=== PATIENT | male | born 1935 | race Caucasian/White ===

== ENCOUNTER 2018-09-04 12:08 | Inpatient (IN) ==
[2018-09-04] MEDS ORDERED: Ipratropium/Albuterol Neb 3 ML ONE (12:15)
[2018-09-04] MEDS ORDERED: methylPREDNISolone 125 MG/2 ML VIAL IVP ONE (12:20)
[2018-09-04] MEDS ORDERED: Ipratropium/Albuterol Neb 3 ML IH ONE (12:21)
--- NOTE | 2018-09-04 12:39 | Emergency Department Note ---
Disposition Clinical Impression: Acute exacerbation of chronic obstructive airways disease, Hyponatremia Community acquired pneumonia Qualifiers: Laterality: unspecified laterality Qualified Code(s): J18.9 - Pneumonia, unspecified organism Disposition: Admitted As Inpatient Condition: Fair Referrals: Vlad Pastrana MD [Primary Care Provider] - Forms: ED Satisfaction Letter Time of Disposition: 14:26 SOB HPI - General Stated Complaint: CRISTINA Time Seen by Provider: 09/04/18 12:10 Source: patient, family, EMS Limitations: no limitations Nursing Notes Reviewed: Yes Vital Signs Reviewed: Yes - History of Present Illness Patient is an 83-year-old male presenting with difficulty breathing. Patient has history of COPD. Patient states that 4-5 days ago he began to have increasing shortness of breath and difficulty breathing with change in sputum. He states that he is not on oxygen at home. Notes that over the past few days he has had increased shortness of breath with any type of exertion. No chest pain. He states that he was seen by his primary care provider 3 days ago and was placed on steroids, as well as nebulizers. He has been doing this without resolved. He states that today he began to have increased shortness of breath and felt as though he needs to be seen. Patient denies any lower extrude a swelling, hemoptysis. He also notes he has been having very dark stools. History of GI ulcer and bleed up rectally 5-7 years ago. Patient denies any nausea, vomiting or abdominal pain. - Related Data Home Medications Medication Instructions Recorded Confirmed Aspirin Enteric Coated [Aspirin EC] 81 mg PO DAILY 03/15/16 03/15/16 Metoprolol XL (24 HR) Succ [Toprol 25 mg PO DAILY 03/15/16 03/15/16 XL] Potassium Chloride [K-Tab ER] 10 meq PO BID 03/15/16 03/15/16 Simvastatin [Zocor] 20 mg PO HS 03/15/16 03/15/16 Tamsulosin [Flomax] 0.4 mg PO DAILY 03/15/16 03/15/16 hydroCHLOROthiazide 25 mg PO DAILY 03/15/16 03/15/16 [Hydrochlorothiazide] Allergies Allergy/AdvReac Type Severity Reaction Status Date / Time Penicillins Allergy Hives Verified 08/08/15 11:55 All systems ED: reviewed and negative except as stated. Review of Systems: As Per HPI Constitutional: Denies: fever, chills, weakness, weight change Eyes: Denies: eye pain, eye discharge, vision change ENT ED: Denies: ear pain, throat pain, dental pain, hearing loss, epistaxis, congestion, dysphagia Cardiovascular: Reports: dyspnea on exertion. Denies: chest pain, palpitations, syncope Respiratory: Reports: cough, dyspnea, wheezes, sputum production. Denies: hem optysis Gastrointestinal: Reports: melena. Denies: abdominal pain, nausea, vomiting, diarrhea, constipation, hematemesis, hematochezia Genitourinary: Denies: urgency, dysuria, frequency, hematuria Musculoskeletal: Denies: back pain, neck pain, arthralgia, myalgia Integumentary: Denies: rash, abrasion, lesions Neurological: Denies: headache, weakness, numbness, paresthesias, confusion, abnormal gait, vertigo Psychiatric: Denies: anxiety, depression, suicidal thoughts, homicidal thoughts, auditory hallucinations, visual hallucinations Endocrine: Denies: fatigue Past Medical History - Past Medical History Attestation: Yes The following information was validated with the patient. Source: patient Medical history: Reports: arthritis, coronary artery disease, hyperlipidemia, hypertension, myocardial infarction, other Surgical history: Reports: other Psychiatric history: Reports: no psych history - Social History Smoking Status: Former smoker Smokeless Tobacco Status: No Alcohol use: Reports: heavy Drug use: Reports: none Physical Exam - General Limitations: no limitations General appearance: alert - Head Head exam: atraumatic, normocephalic, normal inspection - Eye Eye exam: Present: normal appearance, PERRL, EOMI - ENT ENT exam: normal exam, normal oropharynx, mucous membranes moist - Neck Neck exam: Present: normal inspection, full ROM, trachea midline - Chest Chest inspection: Present: normal inspection, symmetric chest wall rise - Respiratory Respiratory exam: Present: respiratory distress (On 15 L nonrebreather, accessory muscle use), wheezes, prolonged expiratory phase - Cardiovascular Cardiovascular exam: Present: regular rate, normal rhythm, normal heart sounds - Abdominal Exam Abdominal exam: Present: soft, Non-Tender. Absent: tenderness, distention, guarding, rebound, rigidity - Extremities Exam Extremities exam: Present: normal inspection, full ROM. Absent: tenderness, pedal edema - Neurological Exam Neurological exam: Present: alert, oriented X3 - Psychiatric Psychiatric exam: Present: normal affect, normal mood - Skin Skin exam: Present: warm, dry, intact, normal color Course Vital Signs Temperature 97.5 F L 09/04/18 12:20 Pulse Rate 91 09/04/18 12:20 Respiratory Rate 18 09/04/18 12:20 Blood Pressure 114/79 09/04/18 12:20 O2 Sat by Pulse Oximetry 94 09/04/18 12:20 Temperature 97.5 F L 09/04/18 12:20 Pulse Rate 112 09/04/18 13:13 Respiratory Rate 24 09/04/18 13:13 Blood Pressure 100/63 09/04/18 13:13 O2 Sat by Pulse Oximetry 100 09/04/18 13:43 Oxygen Delivery Oxygen Delivery Bipap Shortness of Breath/Dyspnea - MDM Narrative Medical decision making narrative: Patient is an 83-year-old male presenting with difficulty breathing and shortness of breath. Patient is not on oxygen at home. Patient has history of CHF, COPD, hypertension and hyperlipidemia. Patient has had progressive shortness of breath over the past 4-5 days. He has been on a course of prednisone as well as W laser treatments at home. He completed a 5 day prednisone dose. Patient states he has no fever or chills. On arrival, patient has increased work of breathing, has accessory muscle use, pulse ox is in the high 80s, with continued work of breathing. He was increased to 15 L nonrebrea ther, continues to have difficulty breathing. He was transferred to [facility] [place] due to respiratory distress. He was given DuoNeb 3. As well as Solu-Medrol. On reevaluation, patient is sitting comfortably, with a pulse ox of 96%. Chest x- ray did reveal bilateral lower pneumonia in the bases, patient was started on azithromycin and Rocephin. Patient also found to be hyponatremic on BMP, was started on normal saline. He also was found to have a leukocytosis of 20, most likely infectious also due to recent steroid use. Did discuss these findings with the patient. BNP is also slightly elevated, no fluid overload is noted on examination, no pitting edema, however he feels so this is most likely due to COPD exacerbation as well as pneumonia. EKG did show most likely MAT, as rhythm is irregular with P waves noted. Did discuss these findings with the patient, he is agreeable to admission for further evaluation and treatment. I spoke with the hospitalist, he has been accepted at this point in time. - Differential Diagnosis Likely: acute exacerbation of chronic obstructive airways disease, congestive heart failure, pneumonia - Medical Records Medical records reviewed: Yes I reviewed the patient's medical records. - Lab Data Lab results reviewed: Yes I reviewed the patient's lab results. Result diagrams: 09/04/18 12:32 09/04/18 12:32 Lab Results 09/04/18 09/04/18 09/04/18 Range/Units 12:32 12:32 12:32 WBC 20.9 H (4.3-11.1) K/mcL RBC 4.38 (4.19-5.50) M/mcL Hgb 14.9 (12.9-16.9) g/dL Hct 42.1 (37.5-50.1) % MCV 96.1 (83.0-100.0) fL MCH 34.0 H (28.0-33.3) pg MCHC 35.4 (31.6-35.5) g/dL RDW 12.1 (11.5-14.5) % Plt Count 550 H (140-400) K/mcL MPV 9.6 (9.4-12.4) fL Immature Gran % 1.2 (0-4) % Seg Neutrophils % 84.2 % Lymphocytes % 5.9 % Monocytes % 8.5 % Eosinophils % 0.0 % Basophils % 0.2 % Neutrophils # 17.6 H (1.6-8.9) K/mcL Lymphocytes # 1.2 (0.6-4.6) K/mcL Monocytes # 1.8 H (0.0-1.3) K/mcL Eosinophils # 0.0 (0.0-0.6) K/mcL Basophils # 0.1 (0.0-0.2) K/mcL Sodium 129 L (136-145) mEq/L Potassium 3.4 L (3.5-5.1) mEq/L Chloride 89 L (98-107) mEq/L Carbon Dioxide 34 H (23-29) mEq/L BUN 22 (8-23) mg/dL Creatinine 0.83 (0.70-1.30) mg/dL Est GFR ( Amer) > 60 (> 60) Est GFR (Non-Af Amer) > 60 (> 60) BUN/Creatinine Ratio 27 H (6-26) Glucose 119 H (70-105) mg/dL Calculated Osmolality 272 L (280-300) Lactic Acid 1.6 (0.5-2.2) mmol/L Calcium 9.0 (8.6-10.3) mg/dL Troponin I < 0.03 (< 0.04) ng/mL B-Natriuretic Peptide (Less than 100) pg/mL 09/04/18 Range/Units 12:32 WBC (4.3-11.1) K/mcL RBC (4.19-5.50) M/mcL Hgb (12.9-16.9) g/dL Hct (37.5-50.1) % MCV (83.0-100.0) fL MCH (28.0-33.3) pg MCHC (31.6-35.5) g/dL RDW (11.5-14.5) % Plt Count (140-400) K/mcL MPV (9.4-12.4) fL Immature Gran % (0-4) % Seg Neutrophils % % Lymphocytes % % Monocytes % % Eosinophils % % Basophils % % Neutrophils # (1.6-8.9) K/mcL Lymphocytes # (0.6-4.6) K/mcL Monocytes # (0.0-1.3) K/mcL Eosinophils # (0.0-0.6) K/mcL Basophils # (0.0-0.2) K/mcL Sodium (136-145) mEq/L Potassium (3.5-5.1) mEq/L Chloride (98-107) mEq/L Carbon Dioxide (23-29) mEq/L BUN (8-23) mg/dL Creatinine (0.70-1.30) mg/dL Est GFR ( Amer) (> 60) Est GFR (Non-Af Amer) (> 60) BUN/Creatinine Ratio (6-26) Glucose (70-105) mg/dL Calculated Osmolality (280-300) Lactic Acid (0.5-2.2) mmol/L Calcium (8.6-10.3) mg/dL Troponin I (< 0.04) ng/mL B-Natriuretic Peptide 194 H (Less than 100) pg/mL - Radiology Data Radiology results reviewed: Yes I reviewed the patient's radiology results. Chest X-Ray 09/04/18 12:20 IMPRESSION: New patchy airspace opacities in lung bases suspicious for pneumonia. D/ / Cathy Wen MD / Cathy Wen MD Interpreting Provider: Cathy Wen MD - EKG Data EKG attestation: Yes I reviewed and interpreted this EKG. EKG results narrative: EKG performed at 1227 with ventricular rate of 119, multiple P-wave morphologies are noted, irregular rhythm, normal axis, no ST elevation or depression is noted. Most likely this represents MAT, given COPD exacerbation. S.B.A.R. - S.B.A.R. Situation: Demographics, MOA Background: Presenting Complaint, Relevant PMH, Meds, & Allergies Assessment: Vital Signs, Course and respsone to treatment, Exam Concerns, Patient/Family Expectation, Pertinant Lab Results, Outstanding Labs Recommendation: Barrier(s) to disposition, Recommendation based on pending studies, treatments, or consults S.B.A.R. Report Given to: Hospitalist [email or web address] Repor Time: 14:34 (accepted) Attestation Statement - Attestation Attestation: I, Marcel Hanna DO, examined this patient [id number] and my medical decision-making was reviewed with Dr. Sinan Alberts , Resident Physician. I agree with the documented findings, disposition and treatment plan as described except to the extent set forth below. Please see my progress notes for details.
[2018-09-04 12:44] LABS: Basophils # 0.1 K/mcL (0.0-0.2); Basophils % 0.2 %; Hematocrit 42.1 % (37.5-50.1); Hemoglobin 14.9 g/dL (12.9-16.9); Immature Granulocytes % 1.2 % (0-4); Lymphocytes # 1.2 K/mcL (0.6-4.6); Lymphocytes % 5.9 %; Mean Corpuscular HGB Conc 35.4 g/dL (31.6-35.5); Mean Corpuscular Volume 96.1 fL (83.0-100.0); Mean Platelet Volume 9.6 fL (9.4-12.4); Monocytes # 1.8 K/mcL (0.0-1.3); Monocytes % 8.5 %; Neutrophils # 17.6 K/mcL (1.6-8.9); Platelet Count 550 K/mcL (140-400); Red Blood Count 4.38 M/mcL (4.19-5.50); Red Cell Distribution Width 12.1 % (11.5-14.5); Segmented Neutrophils % 84.2 %
[2018-09-04 13:09] LABS: BUN/Creatinine Ratio 27 (6-26); Blood Urea Nitrogen 22 mg/dL (8-23); Carbon Dioxide 34 mEq/L (23-29); Chloride 89 mEq/L (98-107); Glucose 119 mg/dL (70-105); Osmolality,Calculated 272 (280-300); Potassium 3.4 mEq/L (3.5-5.1); Sodium 129 mEq/L (136-145); Troponin I < 0.03 ng/mL (< 0.04); eGFR For Non-African Americans > 60 (> 60)
[2018-09-04] MEDS ORDERED: cefTRIAXone 1,000 MG in Water for inj. (sterile) 20 ML 10 ML IVP ONE (13:24)
[2018-09-04] MEDS ORDERED: Azithromycin 500 MG in D5% in Water 250 ML IVPB ONE (13:24)
[2018-09-04] MEDS ORDERED: 0.9 % Sodium Chloride 500 ML IVC ONE (13:48)
--- NOTE | 2018-09-04 14:20 | Emergency Department Note ---
Disposition Clinical Impression: Acute exacerbation of chronic obstructive airways disease Community acquired pneumonia Qualifiers: Laterality: unspecified laterality Qualified Code(s): J18.9 - Pneumonia, unspecified organism Disposition: Admitted As Inpatient Condition: Fair Referrals: Vlad Pastrana MD [Primary Care Provider] - Forms: ED Satisfaction Letter Time of Disposition: 14:30 General Adult HPI - General Chief complaint: ED Shortness of Breath/Dyspnea Stated complaint: CRISTINA Time Seen by Provider: 09/04/18 12:10 Source: patient, family, EMS Limitations: no limitations - History of Present Illness Pain Scale: 0 - Related Data Home Medications Medication Instructions Recorded Confirmed Aspirin Enteric Coated [Aspirin EC] 81 mg PO DAILY 03/15/16 03/15/16 Metoprolol XL (24 HR) Succ [Toprol 25 mg PO DAILY 03/15/16 03/15/16 XL] Potassium Chloride [K-Tab ER] 10 meq PO BID 03/15/16 03/15/16 Simvastatin [Zocor] 20 mg PO HS 03/15/16 03/15/16 Tamsulosin [Flomax] 0.4 mg PO DAILY 03/15/16 03/15/16 hydroCHLOROthiazide 25 mg PO DAILY 03/15/16 03/15/16 [Hydrochlorothiazide] Allergies Allergy/AdvReac Type Severity Reaction Status Date / Time Penicillins Allergy Hives Verified 08/08/15 11:55 Constitutional: Denies: fever, chills, weakness, weight change Eyes: Denies: eye pain, eye discharge, vision change ENT ED: Denies: ear pain, throat pain, dental pain, hearing loss, epistaxis, congestion, dysphagia Cardiovascular: Reports: dyspnea on exertion. Denies: chest pain, palpitations, syncope Respiratory: Reports: cough, dyspnea, wheezes, sputum production. Denies: hemoptysis Gastrointestinal: Reports: melena. Denies: abdominal pain, nausea, vomiting, diarrhea, constipation, hematemesis, hematochezia Genitourinary: Denies: urgency, dysuria, frequency, hematuria Musculoskeletal: Denies: back pain, neck pain, arthralgia, myalgia Integumentary: Denies: rash, abrasion, lesions Neurological: Denies: headache, weakness, numbness, paresthesias, confusion, abnormal gait, vertigo Psychiatric: Denies: anxiety, depression, suicidal thoughts, homicidal thoughts, auditory hallucinations, visual hallucinations Endocrine: Denies: fatigue Past Medical History - Past Medical History Medical history: Reports: arthritis, coronary artery disease, hyperlipidemia, hy pertension, myocardial infarction, other Surgical history: Reports: other Psychiatric history: Reports: no psych history - Social History Smoking Status: Former smoker Smokeless Tobacco Status: No Alcohol use: Reports: heavy Drug use: Reports: none Physical Exam - General Limitations: no limitations General appearance: alert Course Vital Signs Temperature 97.5 F L 09/04/18 12:20 Pulse Rate 91 09/04/18 12:20 Respiratory Rate 18 09/04/18 12:20 Blood Pressure 114/79 09/04/18 12:20 O2 Sat by Pulse Oximetry 94 09/04/18 12:20 Temperature 97.5 F L 09/04/18 12:20 Pulse Rate 112 09/04/18 13:13 Respiratory Rate 24 09/04/18 13:13 Blood Pressure 100/63 09/04/18 13:13 O2 Sat by Pulse Oximetry 100 09/04/18 13:43 Oxygen Delivery Oxygen Delivery Bipap Medical Decision Making - Lab Data Result diagrams: 09/04/18 12:32 09/04/18 12:32 Lab Results 09/04/18 09/04/18 09/04/18 Range/Units 12:32 12:32 12:32 WBC 20.9 H (4.3-11.1) K/mcL RBC 4.38 (4.19-5.50) M/mcL Hgb 14.9 (12.9-16.9) g/dL Hct 42.1 (37.5-50.1) % MCV 96.1 (83.0-100.0) fL MCH 34.0 H (28.0-33.3) pg MCHC 35.4 (31.6-35.5) g/dL RDW 12.1 (11.5-14.5) % Plt Count 550 H (140-400) K/mcL MPV 9.6 (9.4-12.4) fL Immature Gran % 1.2 (0-4) % Seg Neutrophils % 84.2 % Lymphocytes % 5.9 % Monocytes % 8.5 % Eosinophils % 0.0 % Basophils % 0.2 % Neutrophils # 17.6 H (1.6-8.9) K/mcL Lymphocytes # 1.2 (0.6-4.6) K/mcL Monocytes # 1.8 H (0.0-1.3) K/mcL Eosinophils # 0.0 (0.0-0.6) K/mcL Basophils # 0.1 (0.0-0.2) K/mcL Sodium 129 L (136-145) mEq/L Potassium 3.4 L (3.5-5.1) mEq/L Chloride 89 L (98-107) mEq/L Carbon Dioxide 34 H (23-29) mEq/L BUN 22 (8-23) mg/dL Creatinine 0.83 (0.70-1.30) mg/dL Est GFR ( Amer) > 60 (> 60) Est GFR (Non-Af Amer) > 60 (> 60) BUN/Creatinine Ratio 27 H (6-26) Glucose 119 H (70-105) mg/dL Calculated Osmolality 272 L (280-300) Lactic Acid 1.6 (0.5-2.2) mmol/L Calcium 9.0 (8.6-10.3) mg/dL Troponin I < 0.03 (< 0.04) ng/mL B-Natriuretic Peptide (Less than 100) pg/mL 09/04/18 Range/Units 12:32 WBC (4.3-11.1) K/mcL RBC (4.19-5.50) M/mcL Hgb (12.9-16.9) g/dL Hct (37.5-50.1) % MCV (83.0-100.0) fL MCH (28.0-33.3) pg MCHC (31.6-35.5) g/dL RDW (11.5-14.5) % Plt Count (140-400) K/mcL MPV (9.4-12.4) fL Immature Gran % (0-4) % Seg Neutrophils % % Lymphocytes % % Monocytes % % Eosinophils % % Basophils % % Neutrophils # (1.6-8.9) K/mcL Lymphocytes # (0.6-4.6) K/mcL Monocytes # (0.0-1.3) K/mcL Eosinophils # (0.0-0.6) K/mcL Basophils # (0.0-0.2) K/mcL Sodium (136-145) mEq/L Potassium (3.5-5.1) mEq/L Chloride (98-107) mEq/L Carbon Dioxide (23-29) mEq/L BUN (8-23) mg/dL Creatinine (0.70-1.30) mg/dL Est GFR ( Amer) (> 60) Est GFR (Non-Af Amer) (> 60) BUN/Creatinine Ratio (6-26) Glucose (70-105) mg/dL Calculated Osmolality (280-300) Lactic Acid (0.5-2.2) mmol/L Calcium (8.6-10.3) mg/dL Troponin I (< 0.04) ng/mL B-Natriuretic Peptide 194 H (Less than 100) pg/mL Attestation Statement - Attestation Attestation: , Marcel Hanna DO, examined this patient [id number] and my medical decision-making was reviewed with Dr. Sinan Alberts , Resident Physician. I agree with the documented findings, disposition and treatment plan as described except to the extent set forth below. Please see my progress notes for details. 83-year-old male presents emergency room by EMS for evaluation of shortness of breath and increased work of breathing. Patient has been seen and evaluated and treated for pneumonia as well as COPD in the past. Currently denying chest pain, fevers, chills, nausea, vomiting, diarrhea. Denies any headache or vision change. No fevers no chills. No chest pain. Denies any falls trauma or injury. Typically requires oxygen and breathing treatments at home for symptomatic control. He will like he is progressing towards pneumonia versus COPD exacerbation this point. Vital signs are stable on presentation. Patient was on nonrebreather BASC with normal pulse ox. When EMS Picked him up as pulse ox was 80%. Patient was not tolerating his typical oxygen provided to him. Physical exam shows a very thin appearing gentleman. He does have a significant smoking history. Oropharynx is patent no stridor no trismus. Lungs are clear but significantly diminished. No coarse crackles or wheezing noted at this time. Heart is regular. Abdomen is soft. Extremities are normal. No acute neurologic symptoms. Patient will be placed on BiPAP and breathing treatments and steroids provided here in the emergency department. Symptomatic control will be established. Antibiotic regimen will be started at the patient is found to have pneumonia. Clinical suspicion is for COPD flareup possible bronchitis versus pneumonia. Patient will most every required admission for failed outpatient management. See detailed documentation the physical exam, medical intervention, medical decision-making and disposition in the resident physician's note. No critical care provider the patient's treatment course at this time. 1400 Patient has either atrial fibrillation versus multifocal atrial tachycardia. S uspicion would be for multifocal atrial tachycardia considering he has no specific history of A. fib. Patient's chest x-ray does show bilateral pneumonia along with COPD. Symptoms have been controlled the patient is much more comfortable on his BiPAP. The emergency department. Breathing treatments and antibiotic regimen has been started. Hospitals will be contacted for admission. Patient is otherwise clinically stable at this time require further medical evaluation in the inpatient setting. 1425 Patient was accepted by the hospitalist Dr. Carrington. No other recommendations or concerns noted this time. Patient is otherwise clinically stable despite having pneumonia and COPD exacerbation. Symptomatically control as been appreciated with BiPAP and medical management here in the department. Patient does have a remote history of atrial fibrillation but is not currently treated for. Patient will be admitted for observation of the cardiac arrhythmia and respiratory related issues. Patient otherwise stable. Monitor in emergency room until admission process is completed.
[2018-09-04] MEDS ORDERED: Naloxone 0.4 MG/ML INJ IVP PRN (15:24)
--- NOTE | 2018-09-04 16:59 | Internal Med History&Physical ---
<ContrerasSkip - Last Filed: 09/04/18 16:45> Date of Encounter: 09/04/18 Time of Encounter: 03:00 Internal Medicine - H&P: HPI Chief complaint: SOB/Dyspnea Admitted From: Emergency Dept Plans for Post Hospital Care: Home History of present illness: Mr. Gee is a 83 year old male who presented to the ED for worsening SOB and dyspnea of 2 weeks duration. He was seen outpatient by Geraldine Farrell CNP on 08/25/2018, for SOB and received a aerosol breathing treatment in office, CXR was acquired, and he was sent home on 5 days of PO steroids. In addition, he complains of a productive cough with yellow-clear sputum, decreased appetite, and one episode of diarrhea yesterday. He claims he has not been eating very much the last few days, and he has been drinking mostly water and tea. He mentioned to the ED that he also had some very dark, but fully formed, stools. He has a history of a bleeding gastric ulcer 5-7 years ago, last EGD was done in 2015. CXR upon ED admission showed new patchy opacities in the lung bases that is suspicious for pneumonia. Past Med Surg Social Fam HX - Past Medical History Medical history: arthritis, atrial fibrillation, COPD, coronary artery disease, GI bleed, hyperlipidemia, hypertension, myocardial infarction, other Additional medical history: Patient reports bleeding ulcer and was cauterized by Dr. Martinez. Psychiatric history: no psych history - Past Surgical History Surgical History: other Additional surgical history: heart cath x2-no stents placed - Social History Smoking Status: Former smoker Smokeless Tobacco Status: No Alcohol use: heavy, recent (has not drank since he became ill) Drug use: none Current living situation: Home - Family History Mother Hx Family Cancer: Yes (Colon) Father Hx Family Cancer: Yes (Lung) Brother Hx Family Cardiac Disorders: Yes (CABG) Internal Medicine - H&P: Meds Aspirin Enteric Coated [Aspirin EC] 81 mg PO DAILY 03/15/16 [History] Simvastatin [Zocor] 20 mg PO HS 03/15/16 [History] hydroCHLOROthiazide [Hydrochlorothiazide] 25 mg PO DAILY 03/15/16 [History] Carvedilol 3.125 mg PO BID 09/04/18 [History] Clopidogrel [Plavix] 75 mg PO DAILY 09/04/18 [History] Multivitamin [One Daily Multivitamin] 1 tab PO DAILY 09/04/18 [History] Tamsulosin [Flomax] 0.4 mg PO DAILY 09/04/18 [History] Allergy/AdvReac Type Severity Reaction Status Date / Time Penicillins Allergy Hives Verified 08/08/15 11:55 Review of systems: Gen: Admits to decreased appetite, denies any subjective fever, chills, or night sweats HEENT: Denies any headaches, blurry vision, rhinorrhea, sore throat, or trauma CV: Dyspnea on exertion, denies any palpitations, chest pain Resp: Admits to cough, dyspnea, wheezes, and yellow sputum production, denies hemoptysis GI: Admits to some dark stools and diarrhea. Denies nausea, vomiting, constipation, hematemesis : Denies dysuria, hematuria, changes in frequency or urgency MSK: Denies back pain, arthralgias, myalgias Neuro: Denies weakness, dizziness, parestesias, numbness Psych: Denies Anxiety, Depression, suicidal thoughts Skin: Denies rashes, puritis, jaundice - Constitutional Vitals: Temp Pulse Resp BP Pulse Ox 97.7 F 94 18 116/82 95 09/04/18 16:02 09/04/18 16:02 09/04/18 16:02 09/04/18 16:02 09/04/18 16:02 General appearance: Present: A&O X 3 Exam: see below - Head Head exam: Present: atraumatic, normocephalic - Eye Eye exam: Present: EOMI, normal appearance, PERRL - Neck Neck exam general surgery: Present: supple, trachea midline - Respiratory Respiratory exam: Present: decreased breath sounds. Absent: rales, rhonchi, wheezes - Cardiovascular Cardiovascular exam: Present: irregular rhythm, +S1, +S2. Absent: +S3, +S4 - GI/Abdominal GI/Abdominal exam: Present: normal bowel sounds, soft. Absent: distended, guarding, rigid, tenderness - Extremities Exam Extremities exam: Present: normal capillary refill, warm. Absent: cyanotic, pedal edema - Neurological Exam Neurological exam: Present: alert, oriented X3 - Psychiatric Psychiatric exam: Present: normal affect, normal mood - Skin Skin exam: Present: dry, intact, normal color, warm Internal Med - H&P Results - Labs CBC & Chem 7: 09/04/18 12:32 09/04/18 12:32 Labs: Short CBC 09/04/18 Range/Units 12:32 WBC 20.9 H (4.3-11.1) K/mcL Hgb 14.9 (12.9-16.9) g/dL Hct 42.1 (37.5-50.1) % Plt Count 550 H (140-400) K/mcL Neutrophils # 17.6 H (1.6-8.9) K/mcL BMP 09/04/18 12:32 Sodium 129 L Potassium 3.4 L Chloride 89 L Carbon Dioxide 34 H BUN 22 Creatinine 0.83 Glucose 119 H Calcium 9.0 Cardiac Enzymes 09/04/18 Range/Units 12:32 Troponin I < 0.03 (< 0.04) ng/mL - Impressions ITS Impressions Chest X-Ray 09/04/18 12:20 IMPRESSION: New patchy airspace opacities in lung bases suspicious for pneumonia. D/ / Catyh Wen MD / Cathy Wen MD Interpreting Provider: Cathy Wen MD - Assessment and plan (1) Acute exacerbation of chronic obstructive airways disease Current Visit: Yes Status: Acute Assessment and plan: - Pt with hx of COPD presents with dyspnea, SOB of 2 weeks duration - CXR in ED showed new bilateral lower lung opacities, compared to studies from 08/25/18 - Blood cultures ordered - Legionella and Strep urine tests ordered - Pt is now sitting comfortably on nasal cannula, BiPap is available to him - Atrovert/Xopenex breathing treatment scheduled Q6 - Start Solumedrol 40mg Q8 - Start Levaquin and Flagyl (2) Community acquired pneumonia Current Visit: Yes Status: Acute Assessment and plan: - See plan as above Qualifiers: Laterality: unspecified laterality Qualified Code(s): J18.9 - Pneumonia, unspecified organism (3) COPD (chronic obstructive pulmonary disease) Current Visit: Yes Status: Acute Assessment and plan: - See plan as above Qualifiers: COPD type: unspecified COPD Qualified Code(s): J44.9 - Chronic obstructive pulmonary disease, unspecified (4) Hyponatremia Current Visit: Yes Status: Acute Assessment and plan: - Sodium today is 129 - Pt is asymptomatic - 0.9% normal saline 100ml/Hr ordered - Q4 sodium checks - UA ordered - Sequential Neuro checks (5) Hypokalemia Current Visit: Yes Status: Acute Assessment and plan: - Pt has potassium of 3.4 - 40mEq PO dose ordered - Will monitor electrolytes (6) Atrial fibrillation Current Visit: Yes Status: Acute Assessment and plan: - Pt has a hx of a. fib - Pt is not on home anticoagulant medications - ECG upon admission shows a. fib with RVR. 1L saline give in ED, HR decreased to 94 - Pt is to continue home antiplatelet medications - May consider reevaulation for anticoagulation upon admission, review of pt's chart revealed anticoagulation was defered d/t pt and family concerns, per Dr. Cook's note - Monitor on telemetry - Lopressor ordered if patient has aFib with RVR - PT/INR ordered Qualifiers: Atrial fibrillation type: unspecified Qualified Code(s): I48.91 - Unspecified atrial fibrillation (7) Coronary artery disease Current Visit: Yes Status: Acute Assessment and plan: - Hx of NSTEMI in 2005, 2007 with catheterization, no stents placed - Continue on ASA, Clopidogrel, and statin Qualifiers: Coronary Disease-Associated Artery/Lesion type: [place] artery [place] vs. transplanted heart: [place] heart Associated angina: without angina Qualified Code(s): I25.10 - Atherosclerotic heart disease of [place] coronary artery without angina pectoris (8) Hypertension Current Visit: Yes Status: Acute Assessment and plan: - Pt is normotensive upon admission - Continue Coreg - D/c HCTZ d/t hyponatremia as above Qualifiers: Hypertension type: essential hypertension Qualified Code(s): I10 - Essential (primary) hypertension - Time Spent With Patient Total time spent is greater than 50% in coordination of care (as documented) at patient's floor/unit and/or counseling patient: <Sunitha Craig - Last Filed: 09/05/18 13:24> Date of Encounter: 09/05/18 Internal Medicine - H&P: HPI History of present illness: Mr. Gee is a 83 year old male All Systems PM: A 10-system review of systems was performed and is negative for pertinent findings except as documented above in the HPI. - Constitutional Vitals: Temp Pulse Resp BP Pulse Ox 97.0 F L 88 18 135/72 96 09/05/18 12:09 09/05/18 12:09 09/05/18 12:09 09/05/18 12:09 09/05/18 12:09 Internal Med - H&P Results - Labs CBC & Chem 7: 09/05/18 04:48 09/05/18 04:48 Labs: Short CBC 09/05/18 Range/Units 04:48 WBC 13.1 H (4.3-11.1) K/mcL Hgb 13.1 D (12.9-16.9) g/dL Hct 38.0 (37.5-50.1) % Plt Count 457 H (140-400) K/mcL Neutrophils # 11.3 H (1.6-8.9) K/mcL BMP 09/04/18 09/04/18 09/05/18 17:32 20:04 00:02 Sodium 130 L 127 L 129 L Potassium Chloride Carbon Dioxide BUN Creatinine Glucose Calcium 09/05/18 04:48 Sodium 131 L Potassium 3.6 Chloride 96 L Carbon Dioxide 28 BUN 23 Creatinine 0.64 L Glucose 147 H Calcium 8.2 L Cardiac Enzymes 09/04/18 09/05/18 Range/Units 17:32 00:02 Troponin I < 0.03 < 0.03 (< 0.04) ng/mL - Impressions ITS Impressions Chest X-Ray 09/04/18 12:20 IMPRESSION: New patchy airspace opacities in lung bases suspicious for pneumonia. D/ / Cathy Wen MD / Cathy Wen MD Interpreting Provider: Cathy Wen MD - Time Spent With Patient Total time spent is greater than 50% in coordination of care (as documented) at patient's floor/unit and/or counseling patient: - Attending Attestation I examined this patient and my medical decision-making was reviewed with the Resident Physician. I agree with the documented findings, disposition and treatment plan as described except to the extent set forth below. 83 year old male with history of COPD, afib, and etoh abuse presents for dyspnea. Has been treated by PCP for COPD exacerbation with Prednisone but was not improving. He had a chest x-ray few weeks ago that was negative. Today he presents and a chest x-ray showed findings consistent with bibasilar pneumonia. He is on bipap during my assessment in the ED on admission. His VS reviewed RR >20 and HR >90 on admission with WBC 20k. Afebrile. He appeared non-toxic. Lungs had fair air exchange while on bipap. For Acute resp failure, sepsis, COPD exacerbation, pneumonia; patient will be placed on broad spectrum antibiotics to cover CAP, and also possible aspiration pneumonia. He meets SIRS criteria for WBC, HR, RR. Follow-up blood cultures, urinary antigens, sputum culture. Sodium low at 130, he had poor appetite and on HCTZ at home. Diuretics held and giving gentle IV fluid hydration.
[2018-09-04] MEDS ORDERED: *HR* Metoprolol 5 MG/5 ML VIAL IVP PRN (18:03)
[2018-09-04] MEDS: 0.9 % Sodium Chloride 1,000 ML IVC SCH (18:19)
[2018-09-04] MEDS: Ipratropium Neb 0.5 MG NEBULIZER IH SCH ×2 (20:11→23:22)
[2018-09-04] MEDS: MetroNIDAZOLE 500 MG/100 ML 500 MG/100 ML BAG IVPB SCH (23:13)
[2018-09-04] MEDS: Levalbuterol Neb 1.25 MG/3 ML IH SCH (23:22)
[2018-09-05] MEDS: Levalbuterol Neb 1.25 MG/3 ML IH SCH ×4 (03:53→20:26)
[2018-09-05] MEDS: Ipratropium Neb 0.5 MG NEBULIZER IH SCH ×6 (03:53→23:45)
[2018-09-05 05:14] LABS: Basophils % 0.2 %; Hemoglobin 13.1 g/dL (12.9-16.9); Immature Granulocytes % 1.3 % (0-4); Lymphocytes # 1.1 K/mcL (0.6-4.6); Lymphocytes % 8.5 %; Mean Corpuscular HGB Conc 34.5 g/dL (31.6-35.5); Mean Corpuscular Hemoglobin 33.5 pg (28.0-33.3); Mean Corpuscular Volume 97.2 fL (83.0-100.0); Mean Platelet Volume 9.9 fL (9.4-12.4); Monocytes # 0.5 K/mcL (0.0-1.3); Monocytes % 3.8 %; Neutrophils # 11.3 K/mcL (1.6-8.9); Platelet Count 457 K/mcL (140-400); Red Blood Count 3.91 M/mcL (4.19-5.50); Red Cell Distribution Width 12.4 % (11.5-14.5); Segmented Neutrophils % 86.2 %
[2018-09-05 05:20] LABS: INR 1.4; Prothrombin Time 15.4 Seconds (9.4-12.1)
[2018-09-05 05:22] LABS: Activated Partial Thrombo Time 28.8 Seconds (26.0-36.0)
[2018-09-05 05:30] LABS: BUN/Creatinine Ratio 36 (6-26); Blood Urea Nitrogen 23 mg/dL (8-23); Calcium 8.2 mg/dL (8.6-10.3); Carbon Dioxide 28 mEq/L (23-29); Chloride 96 mEq/L (98-107); Glucose 147 mg/dL (70-105); Osmolality,Calculated 278 (280-300); Potassium 3.6 mEq/L (3.5-5.1); Sodium 131 mEq/L (136-145); eGFR For Non-African Americans > 60 (> 60)
[2018-09-05] MEDS: *HR* Enoxaparin 40 MG/0.4 ML SYRINGE SQ SCH (05:31)
[2018-09-05] MEDS: MetroNIDAZOLE 500 MG/100 ML 500 MG/100 ML BAG IVPB SCH ×3 (05:32→23:12)
[2018-09-05] MEDS ORDERED: Pantoprazole 40 MG VIAL IVP SCH (06:00)
[2018-09-05] MEDS: 0.9 % Sodium Chloride 1,000 ML IVC SCH ×3 (07:51→21:00)
[2018-09-05] MEDS: Aspirin Enteric Coated 81 MG Tablet PO SCH (07:52)
[2018-09-05] MEDS: Multivit/Ca/Min/Fe/FA 1 TAB TABLET PO SCH (07:52)
[2018-09-05] MEDS ORDERED: methylPREDNISolone 125 MG/2 ML VIAL IVP SCH (08:00)
[2018-09-05] MEDS ORDERED: MethylPREDNISolone 40 MG/ML VIAL IVP SCH ×2 (08:00→18:00)
[2018-09-05] MEDS ORDERED: levoFLOXacin 750 MG TABLET PO SCH (09:00)
[2018-09-05] MEDS ORDERED: Azithromycin 250 MG TABLET PO SCH (09:00)
--- NOTE | 2018-09-05 10:04 | Internal Med Progress Note ---
Addendum entered and electronically signed by VERONICA Nino 09/05/18 14:42: Original Note: <Skip Chairez - Last Filed: 09/05/18 14:01> Hospitalist Progress Note - Encounter Date of Encounter: 09/05/18 Time of Encounter: 08:45 - Subjective Interval History: Mr. Gee is a 83 year old male who presented to the ED for worsening SOB and dyspnea of 2 weeks duration. Upon admission, he complained of a productive cough with yellow-clear sputum, wheezes, SOB, decreased appetite, and one episode of diarrhea 2 days ago. He claims he has not been eating very much the last few days, and he has been drinking mostly water and tea. He mentioned to the ED th at he also had some very dark, but fully formed, stools. He has a history of a bleeding gastric ulcer 5-7 years ago, last EGD was done in 2016. CXR upon ED admission showed new patchy opacities in the lung bases that is suspicious for pneumonia. Today he was seen at bedside, and he is sitting comfortably on 3LO2 by nasal cannula. He states he feels much better today, and states he has not had to use his BiPap machine since yesterday afternoon. He states he ate most of his breakfast. He still admits to the occasional coughing episode with yellow-clear sputum, and wheezes, but he denies any chest pain, fever, chills, abdominal pain, nausea, vomiting, diarrhea, dysuria, or hematuria. He has not had a bowel movement since his admission. - Exam Vitals: Temp Pulse Resp BP Pulse Ox 98.3 F 94 18 103/67 93 09/05/18 07:39 09/05/18 07:39 09/05/18 09:30 09/05/18 07:39 09/05/18 09:30 Exam: General: AAOx3, in no acute distress, sitting comfortably on nasal cannula Head: Atraumatic, normocephalic EENT: TERRA, EOMI, no scleral icterus or conjunctival injection Throat: Supple, trachea midline CV: Irregularly irregular rhythm, normal S1 and S2 heart sounds present, no gallops, rubs, or murmurs Resp: Bilateral diffuse wheezes, diminished breath sounds especially in lower lobes, no rhonchi or rales GI: BSx4, no masses, no tenderness to palpation, no guarding, no rigidity, no hepatosplenomegaly Neuro: CN II-XII intact, sensation intact bilaterally in UE and LE, muscle strength 5/5 in UE and LE Extremities: warm, normal capillary refill, no edema - Assessment and Plan (1) Acute exacerbation of chronic obstructive airways disease Current Visit: Yes Status: Acute Assessment and Plan: - Pt with hx of COPD presents with dyspnea, SOB of 2 weeks duration - CXR in ED showed new bilateral lower lung opacities, compared to studies from 08/25/18 - Initial Blood cultures shows 1 sample positive for staphylococcus sp. not staph aureus, repeat blood cultures ordered. Vancomycin held, unless subsequent blood cultures show sensitivity. - Legionella and Strep urine tests were negative - Sputum culture is being collected - Pt is now sitting comfortably on PRN nasal cannula at 3L. - Atrovert/Xopenex breathing treatment scheduled Q6 - Solumedrol reduced to 40mg Q8HR - Continue Levaquin and Flagyl awaiting blood culture results (2) Community acquired pneumonia Current Visit: Yes Status: Acute Assessment and Plan: - See plan as above (3) COPD (chronic obstructive pulmonary disease) Current Visit: Yes Status: Acute Assessment and Plan: - See plan as above (4) Hyponatremia Current Visit: Yes Status: Acute Assessment and Plan: - Most recent sodium measurement was 131 at 04:48 - Patient is asymptomatic, and sodium levels continue to return to normal - Neurological exam and mental status check was normal today - Continue maintenance 0.9% saline 100ml/hr - Monitor for signs of fluid overload - Pt is on a normal diet now - Discontinue Q4 sodium checks, return to daily electrolyte checks (5) Hypokalemia Current Visit: Yes Status: Acute Assessment and Plan: - Serum potassium is up 3.6 today - Continue with PO Potassium supplementation - Pt is on normal diet - Continue with daily electrolyte checks (6) Atrial fibrillation Current Visit: Yes Status: Acute Assessment and Plan: - Pt has a hx of a. fib - Pt is not on home anticoagulant medications - Pt has [id number] score of 4 - ECG today shows AFib with RVR at a rate of 99. - HR appears to be between the rates of 88-105 based on telemetry - Pt is to continue home antiplatelet medications - May consider reevaluation for anticoagulation upon admission, review of pt's chart revealed anticoagulation was defered d/t pt and family concerns, per Dr. Cook's note - Monitor on telemetry - Lopressor ordered if patient has aFib with significant RVR - PT/INR ordered (7) Coronary artery disease Current Visit: Yes Status: Acute Assessment and Plan: - Hx of NSTEMI in 2005, 2007 with catheterization, no stents placed - Continue on ASA, Clopidogrel, and statin (8) Hypertension Current Visit: Yes Status: Acute Assessment and Plan: - Pt's BP is stable today - Continue Coreg - D/c HCTZ d/t hyponatremia as above DVT Prophylaxis: SQ Lovenox given - Time Spent with Patient Total time spent is greater than 50% in coordination of care (as documented) at patient's floor/unit and/or counseling patient: Internal Medicine: Result - Labs CBC & Chem 7: 09/05/18 04:48 09/05/18 04:48 Labs: Short CBC 09/04/18 09/05/18 Range/Units 12:32 04:48 WBC 20.9 H 13.1 H (4.3-11.1) K/mcL Hgb 14.9 13.1 D (12.9-16.9) g/dL Hct 42.1 38.0 (37.5-50.1) % Plt Count 550 H 457 H (140-400) K/mcL Neutrophils # 17.6 H 11.3 H (1.6-8.9) K/mcL BMP 09/04/18 09/04/18 09/04/18 12:32 17:32 20:04 Sodium 129 L 130 L 127 L Potassium 3.4 L Chloride 89 L Carbon Dioxide 34 H BUN 22 Creatinine 0.83 Glucose 119 H Calcium 9.0 09/05/18 09/05/18 00:02 04:48 Sodium 129 L 131 L Potassium 3.6 Chloride 96 L Carbon Dioxide 28 BUN 23 Creatinine 0.64 L Glucose 147 H Calcium 8.2 L Cardiac Enzymes 09/04/18 09/04/18 09/05/18 Range/Units 12:32 17:32 00:02 Troponin I < 0.03 < 0.03 < 0.03 (< 0.04) ng/mL - ABG Interpretation ABG results: PT/INR, D-dimer PT 15.4 Seconds (9.4-12.1) H 09/05/18 04:48 - Impressions Impressions Chest X-Ray 09/04/18 12:20 IMPRESSION: New patchy airspace opacities in lung bases suspicious for pneumonia. D/ / Cathy Wen MD / Cathy Wen MD Interpreting Provider: Cathy Wen MD Consult Discharge Plan - Plan Referrals: Vlad Pastrana MD [Primary Care Provider] - <Sunitha Craig - Last Filed: 09/05/18 14:34> Hospitalist Progress Note - Encounter Date of Encounter: 09/05/18 - Exam Vitals: Temp Pulse Resp BP Pulse Ox 97.0 F L 88 18 135/72 96 09/05/18 12:09 09/05/18 12:09 09/05/18 12:09 09/05/18 12:09 09/05/18 12:09 - Time Spent with Patient Total time spent is greater than 50% in coordination of care (as documented) at patient's floor/unit and/or counseling patient: Internal Medicine: Result - Labs CBC & Chem 7: 09/05/18 04:48 09/05/18 04:48 Labs: Short CBC 09/05/18 Range/Units 04:48 WBC 13.1 H (4.3-11.1) K/mcL Hgb 13.1 D (12.9-16.9) g/dL Hct 38.0 (37.5-50.1) % Plt Count 457 H (140-400) K/mcL Neutrophils # 11.3 H (1.6-8.9) K/mcL BMP 09/04/18 09/04/18 09/05/18 17:32 20:04 00:02 Sodium 130 L 127 L 129 L Potassium Chloride Carbon Dioxide BUN Creatinine Glucose Calcium 09/05/18 04:48 Sodium 131 L Potassium 3.6 Chloride 96 L Carbon Dioxide 28 BUN 23 Creatinine 0.64 L Glucose 147 H Calcium 8.2 L Cardiac Enzymes 09/04/18 09/05/18 Range/Units 17:32 00:02 Troponin I < 0.03 < 0.03 (< 0.04) ng/mL - ABG Interpretation ABG results: PT/INR, D-dimer PT 15.4 Seconds (9.4-12.1) H 09/05/18 04:48 - Attending Attestation I examined this patient and my medical decision-making was reviewed with the Resident Physician. I agree with the documented findings, disposition and treatment plan as described except to the extent set forth below. Patient feeling significantly better today, states haven't felt this good in a while. Physical exam shows patient is resting more comfortable compared to yesterday, Lungs with scattered wheezing, cardiac auscultation slightly tachycardic. VS: reviewed, labs: leukocytosis improving. Prelim blood cultures positive. A/P: Sepsis with bacteremia: Source is bacterial pneumonia, Acute respiratory failure, COPD exacerbation, hyponatremia. Continue IV antibiotics, repeat blood cultures, await culture sensitivities, sheduled nebs, Solu Medrol, wean O2 as tolerated. <Skip Chairez - Last Filed: 09/05/18 14:01> (2) Community acquired pneumonia Qualifiers: Laterality: unspecified laterality Qualified Code(s): J18.9 - Pneumonia, unspecified organism (3) COPD (chronic obstructive pulmonary disease) Qualifiers: COPD type: unspecified COPD Qualified Code(s): J44.9 - Chronic obstructive pulmonary disease, unspecified (6) Atrial fibrillation Qualifiers: Atrial fibrillation type: unspecified Qualified Code(s): I48.91 - Unspecified atrial fibrillation (7) Coronary artery disease Qualifiers: Coronary Disease-Associated Artery/Lesion type: [place] artery [place] vs. transplanted heart: [place] heart Associated angina: without angina Qualified Code(s): I25.10 - Atherosclerotic heart disease of [place] coronary artery without angina pectoris (8) Hypertension Qualifiers: Hypertension type: essential hypertension Qualified Code(s): I10 - Essential (primary) hypertension
--- NOTE | 2018-09-05 11:40 | Electrocardiograph Report ---
[place] [id number] Test Date: 2018-09-04 Pat Name: Ruy Gee Department: [id number] Room: 2A Gender: M Application Trainer: : 1935 Requested By: Marcel Hanna Order Number: [id number] Reading MD: Efren Adrian Measurements Intervals [place] Rate: 119 P: ND: QRS: 87 QRSD: 89 T: 18 QT: 308 QTc: 434 Interpretive Statements Atrial fibrillation Nonspecific ST-T changes Electronically Signed On 09-05-2018 11:39:32 EST by Efren Adrian
[2018-09-05 12:16] LABS: Acinetobacter baumannii by PCR Not Detected (Not Detect); Candida albicans by PCR Not Detected (Not Detect); Candida glabrata by PCR Not Detected (Not Detect); Candida krusei by PCR Not Detected (Not Detect); Candida parapsilosis by PCR Not Detected (Not Detect); Candida tropicalis by PCR Not Detected (Not Detect); Enterobacter cloacae Cmplx PCR Not Detected (Not Detect); Enterobacteriaceae by PCR Not Detected (Not Detect); Enterococcus by PCR Not Detected (Not Detect); Escherichia coli by PCR Not Detected (Not Detect); Klebsiella oxytoca by PCR Not Detected (Not Detect); Klebsiella pneumoniae by PCR Not Detected (Not Detect); Proteus by PCR Not Detected (Not Detect); Pseudomonas aeruginosa by PCR Not Detected (Not Detect); Serratia marcescens by PCR Not Detected (Not Detect); Staphylococcus aureus by PCR Not Detected (Not Detect); Staphylococcus by PCR DETECTED (Not Detect); Streptococcus agalactiae(B)PCR Not Detected (Not Detect); Streptococcus by PCR Not Detected (Not Detect); Streptococcus pneumoniae PCR Not Detected (Not Detect); Streptococcus pyogenes (A) PCR Not Detected (Not Detect); mecA Methicillin-Resist Gene Not Detected (Not Detect)
[2018-09-05] MEDS ORDERED: metroNIDAZOLE 500 MG TABLET PO SCH (15:00)
[2018-09-05] MEDS: MethylPREDNISolone 40 MG/ML VIAL IVP SCH ×2 (15:54→23:13)
[2018-09-06] MEDS: Ipratropium Neb 0.5 MG NEBULIZER IH SCH ×6 (04:06→23:50)
[2018-09-06] MEDS: Levalbuterol Neb 1.25 MG/3 ML IH SCH ×4 (04:06→23:50)
[2018-09-06] MEDS: 0.9 % Sodium Chloride 1,000 ML IVC SCH (05:20)
[2018-09-06] MEDS: *HR* Enoxaparin 40 MG/0.4 ML SYRINGE SQ SCH (05:20)
[2018-09-06 06:14] LABS: Basophils % 0.1 %; Hematocrit 37.9 % (37.5-50.1); Hemoglobin 12.8 g/dL (12.9-16.9); Immature Granulocytes % 1.2 % (0-4); Lymphocytes % 5.4 %; Mean Corpuscular HGB Conc 33.8 g/dL (31.6-35.5); Mean Corpuscular Hemoglobin 33.7 pg (28.0-33.3); Mean Corpuscular Volume 99.7 fL (83.0-100.0); Mean Platelet Volume 9.6 fL (9.4-12.4); Monocytes # 0.5 K/mcL (0.0-1.3); Monocytes % 2.5 %; Neutrophils # 16.4 K/mcL (1.6-8.9); Platelet Count 456 K/mcL (140-400); Red Cell Distribution Width 12.6 % (11.5-14.5); Segmented Neutrophils % 90.8 %
[2018-09-06 06:31] LABS: BUN/Creatinine Ratio 29 (6-26); Blood Urea Nitrogen 18 mg/dL (8-23); Calcium 8.1 mg/dL (8.6-10.3); Carbon Dioxide 26 mEq/L (23-29); Chloride 102 mEq/L (98-107); Glucose 149 mg/dL (70-105); Osmolality,Calculated 285 (280-300); Potassium 3.9 mEq/L (3.5-5.1); Sodium 135 mEq/L (136-145); eGFR For Non-African Americans > 60 (> 60)
[2018-09-06 06:33] LABS: INR 1.4; Prothrombin Time 15.8 Seconds (9.4-12.1)
--- NOTE | 2018-09-06 07:30 | Internal Med Progress Note ---
<Jesus Cali - Last Filed: 09/06/18 12:42> Hospitalist Progress Note - Encounter Date of Encounter: 09/06/18 Time of Encounter: 09:23 - Subjective Interval History: Mr. Gee is an 83M with PMH of afib, arthritis, COPD, CAD, gastric ulcer, HTN, and HLD. He originally presented to the ED on 09/04 for worsening SOB and dyspnea of 2 weeks duration. Upon admission, he complained of a productive cough with yellow-clear sputum, wheezes, SOB, decreased appetite, and one episode of diarrhea 2 days ago. He claims he has not been eating very much the last few days, and he has been drinking mostly water and tea. He mentioned to the ED that he also had some very dark, but fully formed, stools. He has a history of a bleeding gastric ulcer 5-7 years ago, last EGD was done in 2015. CXR upon ED admission showed new patchy opacities in the lung bases that is suspicious for pneumonia. Pt seen and examined at bedside today. Resting comfortably in bed with no new or acute complaints. States his shortness of breath is unchanged from yesterday. States he is not producing as much sputum now. Denies any fever, chills, chest pain, abdominal pain, nausea, vomiting, diarrhea, or constipation. States his bowel movements have been normal. Denies urinary symptoms. States he is sleeping well at night. - Exam Vitals: Temp Pulse Resp BP Pulse Ox 98.4 F 109 20 129/80 92 09/06/18 06:47 09/06/18 06:47 09/06/18 06:47 09/06/18 06:47 09/06/18 06:47 Exam: General: well nourished, well developed male in minimal respiratory disress Head: Atraumatic, normocephalic Eyes: PERRL, EOMI, no scleral icterus or conjunctival injection Neck: Supple, trachea midline Heart: Irregularly irregular rhythm, normal S1 and S2 heart sounds present, no gallops, rubs, or murmurs Resp: Grossly diminished breath sounds, but improved from yesterday. No wheezes, rales, or rhonchi. Minimally labored breathing on 3lpm O2. GI: Abdomen soft, non-tender, non-distended. no masses. normoactive bowel sounds Extremities: warm, peripheral pulses palpable and symmetrical. no edema or cyanosis Neuro: A&Ox3. no focal deficits. no speech difficulty or abnormality Skin: warm, dry, intact - Assessment and Plan (1) Acute exacerbation of chronic obstructive airways disease Current Visit: Yes Status: Acute Assessment and Plan: Hx of COPD Presented with dyspnea and SOB for 2 weeks CXR from ED revealed bilateral lower lung opacities as compared to film from 08/25/18 Legionella and Strep urine antigens negative Sputum cultures pending Blood cultures x2 from 09/04 - one culture preliminary shows Staph species, but not Staph aureus Blood cultures x2 from 09/05 - pending Currently satting well on 3lpm O2 via NC Continue Solumedrol 40mg q8hr, may consider de-escalating tomorrow Continue scheduled nebs Continue Levaquin and Flagyl (Day 3) (2) Community acquired pneumonia Current Visit: Yes Status: Acute Assessment and Plan: plan as above (3) COPD (chronic obstructive pulmonary disease) Current Visit: Yes Status: Acute Assessment and Plan: plan as above (4) Hypokalemia Current Visit: Yes Status: Acute Assessment and Plan: Potassium 3.9 today Continue to monitor closely (5) Hyponatremia Current Visit: Yes Status: Acute Assessment and Plan: Sodium today of 135 Remains asymptomatic Discontinued IV fluids as po intake has improved Continue to monitor closely (6) Atrial fibrillation Current Visit: Yes Status: Acute Assessment and Plan: Hx of afib, not on home anticoagulation CHADS2-VASC score of 4 EKG showed Afib with RVR at rate of 99 HR remains in 80s to 100s based on telemetry Continues to deny chest pain or palpitations. Continue home meds Consider cardio re-evaluation for anticoagulation, likely to be done outpt, as on chart review anticoagulation was defered due to pt and family concerns Continue to monitor on tele, has Lopressor 5mg PRN for HR >120 (7) Coronary artery disease Current Visit: Yes Status: Acute Assessment and Plan: Hx of NSTEMI in 2005 and 2007. Has had LHC with no stents placed Continue ASA, Plavix, and statin (8) Hypertension Current Visit: Yes Status: Acute Assessment and Plan: Stable at 129/80 today Continue Coreg Continue to hold HCTZ with recent hyponaturemia DVT Prophylaxis: SQ Lovenox - Time Spent with Patient Total time spent is greater than 50% in coordination of care (as documented) at patient's floor/unit and/or counseling patient: Internal Medicine: Result - Labs CBC & Chem 7: 09/06/18 05:59 09/06/18 05:59 Labs: Short CBC 09/06/18 Range/Units 05:59 WBC 18.1 H (4.3-11.1) K/mcL Hgb 12.8 L (12.9-16.9) g/dL Hct 37.9 (37.5-50.1) % Plt Count 456 H (140-400) K/mcL Neutrophils # 16.4 H (1.6-8.9) K/mcL BMP 09/06/18 05:59 Sodium 135 L Potassium 3.9 Chloride 102 Carbon Dioxide 26 BUN 18 Creatinine 0.63 L Glucose 149 H Calcium 8.1 L - ABG Interpretation ABG results: PT/INR, D-dimer PT 15.8 Seconds (9.4-12.1) H 09/06/18 05:59 Consult Discharge Plan - Plan Referrals: Vlad Pastrana MD [Primary Care Provider] - <Sunitha Craig - Last Filed: 09/06/18 14:04> Hospitalist Progress Note - Encounter Date of Encounter: 09/06/18 - Exam Vitals: Temp Pulse Resp BP Pulse Ox 97.8 F 91 20 105/68 94 09/06/18 12:23 09/06/18 12:23 09/06/18 12:23 09/06/18 12:23 09/06/18 12:23 - Assessment and Plan (1) Acute exacerbation of chronic obstructive airways disease Current Visit: Yes Status: Acute (2) Community acquired pneumonia Current Visit: Yes Status: Acute (3) Hyponatremia Current Visit: Yes Status: Acute (4) COPD (chronic obstructive pulmonary disease) Current Visit: Yes Status: Acute (5) Hypokalemia Current Visit: Yes Status: Acute (6) Atrial fibrillation Current Visit: Yes Status: Acute (7) Coronary artery disease Current Visit: Yes Status: Acute (8) Hypertension Current Visit: Yes Status: Acute - Time Spent with Patient Total time spent is greater than 50% in coordination of care (as documented) at patient's floor/unit and/or counseling patient: Internal Medicine: Result - Labs CBC & Chem 7: 09/06/18 05:59 09/06/18 05:59 Labs: Short CBC 09/06/18 Range/Units 05:59 WBC 18.1 H (4.3-11.1) K/mcL Hgb 12.8 L (12.9-16.9) g/dL Hct 37.9 (37.5-50.1) % Plt Count 456 H (140-400) K/mcL Neutrophils # 16.4 H (1.6-8.9) K/mcL BMP 09/06/18 05:59 Sodium 135 L Potassium 3.9 Chloride 102 Carbon Dioxide 26 BUN 18 Creatinine 0.63 L Glucose 149 H Calcium 8.1 L - ABG Interpretation ABG results: PT/INR, D-dimer PT 15.8 Seconds (9.4-12.1) H 09/06/18 05:59 - Attending Attestation I examined this patient and my medical decision-making was reviewed with the Resident Physician. I agree with the documented findings, disposition and treatment plan as described except to the extent set forth below. No acute events. Patient states he feels about the same since yesterday. Physical exam shows lungs are clear with improvement compared to yesterday's exam. VS: reviewed; overnight had tachycardia but right now hemodynamically stable, though he is requiring 3 L O2. Labs: Hemoglobin now 12.8, down from 14.9 on admission, running IV fluids since admission. Blood cultures as noted yesterday positive in one of 2 sets. A/P: Acute respiratory failure from COPD and community acquired pneumonia, Sepsis - source CAP Bacteremia - 1 of 2 sets positive for GPC, might be contaminate. Repeat blood cultures pending, follow-up sensitivities. anemia (likely hemodilutional), history of GI bleed, alcohol abuse, - Continue Solu Medrol, scheduled neb therapies. - Continue Levaquin, Flagyl - IV fluids held, recheck H&H tomorrow. - Follow-up sensitivities, repeat blood cultures pending as well. - Wean O2 as tolerated, start I.S. <Jesus Cali - Last Filed: 09/06/18 12:42> (2) Community acquired pneumonia Qualifiers: Laterality: unspecified laterality Qualified Code(s): J18.9 - Pneumonia, unspecified organism (3) COPD (chronic obstructive pulmonary disease) Qualifiers: COPD type: unspecified COPD Qualified Code(s): J44.9 - Chronic obstructive pulmonary disease, unspecified (6) Atrial fibrillation Qualifiers: Atrial fibrillation type: unspecified Qualified Code(s): I48.91 - Unspecified atrial fibrillation (7) Coronary artery disease Qualifiers: Coronary Disease-Associated Artery/Lesion type: [place] artery [place] vs. transplanted heart: [place] heart Associated angina: without angina Qualified Code(s): I25.10 - Atherosclerotic heart disease of [place] coronary artery without angina pectoris (8) Hypertension Qualifiers: Hypertension type: essential hypertension Qualified Code(s): I10 - Essential (primary) hypertension <MukerrydanishaSunitha - Last Filed: 09/06/18 14:04> (2) Community acquired pneumonia Qualifiers: Laterality: unspecified laterality Qualified Code(s): J18.9 - Pneumonia, unspecified organism (4) COPD (chronic obstructive pulmonary disease) Qualifiers: COPD type: unspecified COPD Qualified Code(s): J44.9 - Chronic obstructive pulmonary disease, unspecified (6) Atrial fibrillation Qualifiers: Atrial fibrillation type: unspecified Qualified Code(s): I48.91 - Unspecified atrial fibrillation (7) Coronary artery disease Qualifiers: Coronary Disease-Associated Artery/Lesion type: [place] artery [place] vs. transplanted heart: [place] heart Associated angina: without angina Qualified Code(s): I25.10 - Atherosclerotic heart disease of [place] coronary artery without angina pectoris (8) Hypertension Qualifiers: Hypertension type: essential hypertension Qualified Code(s): I10 - Essential (primary) hypertension
[2018-09-06] MEDS: MetroNIDAZOLE 500 MG/100 ML 500 MG/100 ML BAG IVPB SCH ×2 (07:34→17:22)
[2018-09-06] MEDS: MethylPREDNISolone 40 MG/ML VIAL IVP SCH ×2 (07:35→17:21)
[2018-09-06] MEDS: Levofloxacin 750 MG/150 ML 750 MG/150 ML BAG IVPB SCH (07:37)
[2018-09-06] MEDS: Multivit/Ca/Min/Fe/FA 1 TAB TABLET PO SCH (07:40)
[2018-09-06] MEDS: Folic Acid 1 MG TABLET PO SCH (07:41)
[2018-09-06] MEDS: Thiamine (B-1) 100 MG TABLET PO SCH (07:41)
[2018-09-06] MEDS: Aspirin Enteric Coated 81 MG Tablet PO SCH (07:41)
[2018-09-07] MEDS: MethylPREDNISolone 40 MG/ML VIAL IVP SCH ×3 (00:07→16:58)
[2018-09-07] MEDS: MetroNIDAZOLE 500 MG/100 ML 500 MG/100 ML BAG IVPB SCH ×3 (00:08→16:59)
[2018-09-07] MEDS: Levalbuterol Neb 1.25 MG/3 ML IH SCH ×4 (03:45→19:54)
[2018-09-07] MEDS: Ipratropium Neb 0.5 MG NEBULIZER IH SCH ×6 (03:45→23:06)
[2018-09-07 05:25] LABS: Basophils % 0.2 %; Eosinophils % 0.1 %; Hematocrit 38.9 % (37.5-50.1); Hemoglobin 13.1 g/dL (12.9-16.9); Immature Granulocytes % 1.4 % (0-4); Lymphocytes # 0.9 K/mcL (0.6-4.6); Lymphocytes % 5.5 %; Mean Corpuscular HGB Conc 33.7 g/dL (31.6-35.5); Mean Corpuscular Hemoglobin 33.7 pg (28.0-33.3); Mean Platelet Volume 9.7 fL (9.4-12.4); Monocytes # 0.3 K/mcL (0.0-1.3); Neutrophils # 14.9 K/mcL (1.6-8.9); Platelet Count 489 K/mcL (140-400); Red Blood Count 3.89 M/mcL (4.19-5.50); Red Cell Distribution Width 12.7 % (11.5-14.5); Segmented Neutrophils % 90.8 %
[2018-09-07 05:45] LABS: BUN/Creatinine Ratio 24 (6-26); Blood Urea Nitrogen 16 mg/dL (8-23); Calcium 8.5 mg/dL (8.6-10.3); Carbon Dioxide 27 mEq/L (23-29); Chloride 101 mEq/L (98-107); Glucose 140 mg/dL (70-105); Osmolality,Calculated 283 (280-300); Potassium 3.9 mEq/L (3.5-5.1); Sodium 135 mEq/L (136-145); eGFR For Non-African Americans > 60 (> 60)
[2018-09-07] MEDS: *HR* Enoxaparin 40 MG/0.4 ML SYRINGE SQ SCH (05:45)
[2018-09-07] MEDS: Multivit/Ca/Min/Fe/FA 1 TAB TABLET PO SCH (07:54)
[2018-09-07] MEDS: Aspirin Enteric Coated 81 MG Tablet PO SCH (07:54)
[2018-09-07] MEDS: Thiamine (B-1) 100 MG TABLET PO SCH (07:54)
[2018-09-07] MEDS: Folic Acid 1 MG TABLET PO SCH (07:54)
[2018-09-07] MEDS: Levofloxacin 750 MG/150 ML 750 MG/150 ML BAG IVPB SCH (08:00)
--- NOTE | 2018-09-07 11:40 | Internal Med Progress Note ---
<Jesus Cali Chung - Last Filed: 09/07/18 11:36> Hospitalist Progress Note - Encounter Date of Encounter: 09/07/18 Time of Encounter: 10:45 - Subjective Interval History: Mr. Gee is an 83M with PMH of afib, arthritis, COPD, CAD, gastric ulcer, HTN, and HLD. He originally presented to the ED on 09/04 for worsening SOB and dyspnea of 2 weeks duration. Upon admission, he complained of a productive cough with yellow-clear sputum, wheezes, SOB, decreased appetite, and one episode of diarrhea 2 days ago. He claims he has not been eating very much the last few days, and he has been drinking mostly water and tea. He mentioned to the ED that he also had some very dark, but fully formed, stools. He has a history of a bleeding gastric ulcer 5-7 years ago, last EGD was done in 2015. CXR upon ED admission showed new patchy opacities in the lung bases that is suspicious for pneumonia. Pt seen and examined at bedside today. Resting comfortably in bed with no new or acute complaints. States his shortness of breath is slightly improved from yesterday. States he is not producing as much sputum now. Denies any fever, chills, chest pain, abdominal pain, nausea, vomiting, diarrhea, or constipation. States his bowel movements have been normal. Denies urinary symptoms. States he is sleeping well at night. - Exam Vitals: Temp Pulse Resp BP Pulse Ox 100 F H 68 20 104/49 97 09/07/18 10:45 09/07/18 10:45 09/07/18 10:45 09/07/18 10:45 09/07/18 10:45 Exam: General: well nourished, well developed male in minimal respiratory disress Head: Atraumatic, normocephalic Eyes: PERRL, EOMI, no scleral icterus or conjunctival injection Neck: Supple, trachea midline Heart: Irregularly irregular rhythm, normal S1 and S2 heart sounds present, no gallops, rubs, or murmurs Resp: Grossly diminished breath sounds, but improved from yesterday. No wheezes, rales, or rhonchi. Minimally labored breathing on 2lpm O2. GI: Abdomen soft, non-tender, non-distended. no masses. normoactive bowel sounds Extremities: warm, peripheral pulses palpable and symmetrical. no edema or cyanosis Neuro: A&Ox3. no focal deficits. no speech difficulty or abnormality Skin: warm, dry, intact - Assessment and Plan (1) Acute exacerbation of chronic obstructive airways disease Current Visit: Yes Status: Acute Assessment and Plan: Hx of COPD Presented with dyspnea and SOB for 2 weeks CXR from ED revealed bilateral lower lung opacities as compared to film from 08/25/18 Legionella and Strep urine antigens negative Sputum cultures pending Blood cultures x2 from 09/04 - one culture grew Staph haemolyticus sensitive to levaquin Blood cultures x2 from 09/05 - pending Currently satting well on 2lpm O2 via NC Decrease Solumedrol to 40mg q12hr Continue scheduled nebs Continue Levaquin and Flagyl (Day 4) - will consider de-escalating abx tomorrow (2) Community acquired pneumonia Current Visit: Yes Status: Acute Assessment and Plan: plan as above (3) COPD (chronic obstructive pulmonary disease) Current Visit: Yes Status: Acute Assessment and Plan: plan as above (4) Hypokalemia Current Visit: Yes Status: Acute Assessment and Plan: Potassium 3.9 today Continue to monitor closely (5) Hyponatremia Current Visit: Yes Status: Acute Assessment and Plan: Sodium today of 135 Remains asymptomatic Continue to monitor closely (6) Atrial fibrillation Current Visit: Yes Status: Acute Assessment and Plan: Hx of afib, not on home anticoagulation CHADS2-VASC score of 4 EKG showed Afib with RVR at rate of 99 HR remains in 80s to 100s based on telemetry Continues to deny chest pain or palpitations. Continue home meds Consider cardio re-evaluation for anticoagulation, likely to be done outpt, as on chart review anticoagulation was defered due to pt and family concerns Continue to monitor on tele, has Lopressor 5mg PRN for HR >120 (7) Coronary artery disease Current Visit: Yes Status: Acute Assessment and Plan: Hx of NSTEMI in 2005 and 2007. Has had LHC with no stents placed Continue ASA, Plavix, and statin (8) Hypertension Current Visit: Yes Status: Acute Assessment and Plan: Stable at 113/76 today Continue Coreg Continue to hold HCTZ with recent hyponaturemia DVT Prophylaxis: SQ Lovenox - Time Spent with Patient Total time spent is greater than 50% in coordination of care (as documented) at patient's floor/unit and/or counseling patient: Internal Medicine: Result - Labs CBC & Chem 7: 09/07/18 04:40 09/07/18 04:40 Labs: Short CBC 09/07/18 Range/Units 04:40 WBC 16.4 H (4.3-11.1) K/mcL Hgb 13.1 (12.9-16.9) g/dL Hct 38.9 (37.5-50.1) % Plt Count 489 H (140-400) K/mcL Neutrophils # 14.9 H (1.6-8.9) K/mcL BMP 09/07/18 04:40 Sodium 135 L Potassium 3.9 Chloride 101 Carbon Dioxide 27 BUN 16 Creatinine 0.67 L Glucose 140 H Calcium 8.5 L - ABG Interpretation ABG results: PT/INR, D-dimer PT 15.8 Seconds (9.4-12.1) H 09/06/18 05:59 Consult Discharge Plan - Plan Referrals: Vlad Pastrana MD [Primary Care Provider] - <Sunitha Craig - Last Filed: 09/07/18 13:53> Hospitalist Progress Note - Encounter Date of Encounter: 09/07/18 - Exam Vitals: Temp Pulse Resp BP Pulse Ox 100 F H 68 18 104/49 97 09/07/18 10:45 09/07/18 10:45 09/07/18 11:34 09/07/18 10:45 09/07/18 11:34 - Assessment and Plan (1) Acute exacerbation of chronic obstructive airways disease Current Visit: Yes Status: Acute (2) Community acquired pneumonia Current Visit: Yes Status: Acute (3) Hyponatremia Current Visit: Yes Status: Acute (4) COPD (chronic obstructive pulmonary disease) Current Visit: Yes Status: Acute (5) Hypokalemia Current Visit: Yes Status: Acute (6) Atrial fibrillation Current Visit: Yes Status: Acute (7) Coronary artery disease Current Visit: Yes Status: Acute (8) Hypertension Current Visit: Yes Status: Acute - Time Spent with Patient Total time spent is greater than 50% in coordination of care (as documented) at patient's floor/unit and/or counseling patient: Internal Medicine: Result - Labs CBC & Chem 7: 09/07/18 04:40 09/07/18 04:40 Labs: Short CBC 09/07/18 Range/Units 04:40 WBC 16.4 H (4.3-11.1) K/mcL Hgb 13.1 (12.9-16.9) g/dL Hct 38.9 (37.5-50.1) % Plt Count 489 H (140-400) K/mcL Neutrophils # 14.9 H (1.6-8.9) K/mcL BMP 09/07/18 04:40 Sodium 135 L Potassium 3.9 Chloride 101 Carbon Dioxide 27 BUN 16 Creatinine 0.67 L Glucose 140 H Calcium 8.5 L - ABG Interpretation ABG results: PT/INR, D-dimer PT 15.8 Seconds (9.4-12.1) H 09/06/18 05:59 - Attending Attestation I examined this patient and my medical decision-making was reviewed with the Resident Physician. I agree with the documented findings, disposition and treatment plan as described except to the extent set forth below. No acute events, unable to wean O2. On exam lung sounds clear with faint exp wheezing, no acute resp distress, pleasant. VS: reviewed - normal BP, few episodes of tachycardia, afebrile, Labs: reviewed, leukocytosis shows slight improvement now to 16k. A/P: Acute respiratory failure from COPD and community acquired pneumonia, Sepsis - source CAP - Resolved Bacteremia - 1 of 2 sets positive for GPC, might be contaminate. Repeat blood cultures NGTD history of GI bleed, alcohol abuse, Atrial fibrillation - on BB, not on anticoagulation - reviewed outpatient records Likely home tomorrow. O2 qualification test prior to discharge. <Jesus Cali A - Last Filed: 09/07/18 11:36> (2) Community acquired pneumonia Qualifiers: Laterality: unspecified laterality Qualified Code(s): J18.9 - Pneumonia, unspecified organism (3) COPD (chronic obstructive pulmonary disease) Qualifiers: COPD type: unspecified COPD Qualified Code(s): J44.9 - Chronic obstructive pulmonary disease, unspecified (6) Atrial fibrillation Qualifiers: Atrial fibrillation type: unspecified Qualified Code(s): I48.91 - Unspecified atrial fibrillation (7) Coronary artery disease Qualifiers: Coronary Disease-Associated Artery/Lesion type: [place] artery [place] vs. transplanted heart: [place] heart Associated angina: without angina Qualified Code(s): I25.10 - Atherosclerotic heart disease of [place] coronary artery without angina pectoris (8) Hypertension Qualifiers: Hypertension type: essential hypertension Qualified Code(s): I10 - Essential (primary) hypertension <Sunitha Craig - Last Filed: 09/07/18 13:53> (2) Community acquired pneumonia Qualifiers: Laterality: unspecified laterality Qualified Code(s): J18.9 - Pneumonia, unspecified organism (4) COPD (chronic obstructive pulmonary disease) Qualifiers: COPD type: unspecified COPD Qualified Code(s): J44.9 - Chronic obstructive pulmonary disease, unspecified (6) Atrial fibrillation Qualifiers: Atrial fibrillation type: unspecified Qualified Code(s): I48.91 - Unspecified atrial fibrillation (7) Coronary artery disease Qualifiers: Coronary Disease-Associated Artery/Lesion type: [place] artery [place] vs. tra nsplanted heart: [place] heart Associated angina: without angina Qualified Code(s): I25.10 - Atherosclerotic heart disease of [place] coronary artery without angina pectoris (8) Hypertension Qualifiers: Hypertension type: essential hypertension Qualified Code(s): I10 - Essential (primary) hypertension
[2018-09-08] MEDS: MetroNIDAZOLE 500 MG/100 ML 500 MG/100 ML BAG IVPB SCH ×2 (00:13→08:57)
[2018-09-08] MEDS: Ipratropium Neb 0.5 MG NEBULIZER IH SCH ×3 (04:17→11:24)
[2018-09-08] MEDS: Levalbuterol Neb 1.25 MG/3 ML IH SCH ×2 (04:17→11:24)
[2018-09-08] MEDS: *HR* Enoxaparin 40 MG/0.4 ML SYRINGE SQ SCH (05:33)
[2018-09-08] MEDS: MethylPREDNISolone 40 MG/ML VIAL IVP SCH (05:34)
[2018-09-08 05:36] LABS: Basophils % 0.3 %; Hematocrit 38.8 % (37.5-50.1); Hemoglobin 13.2 g/dL (12.9-16.9); Immature Granulocytes % 1.7 % (0-4); Lymphocytes # 1.2 K/mcL (0.6-4.6); Lymphocytes % 7.8 %; Mean Corpuscular Hemoglobin 33.5 pg (28.0-33.3); Mean Corpuscular Volume 98.5 fL (83.0-100.0); Mean Platelet Volume 9.5 fL (9.4-12.4); Monocytes # 0.7 K/mcL (0.0-1.3); Neutrophils # 12.5 K/mcL (1.6-8.9); Platelet Count 496 K/mcL (140-400); Red Blood Count 3.94 M/mcL (4.19-5.50); Red Cell Distribution Width 12.4 % (11.5-14.5); Segmented Neutrophils % 85.2 %
[2018-09-08 05:50] LABS: BUN/Creatinine Ratio 23 (6-26); Blood Urea Nitrogen 17 mg/dL (8-23); Calcium 8.5 mg/dL (8.6-10.3); Carbon Dioxide 29 mEq/L (23-29); Chloride 101 mEq/L (98-107); Glucose 113 mg/dL (70-105); Osmolality,Calculated 282 (280-300); Potassium 4.1 mEq/L (3.5-5.1); Sodium 135 mEq/L (136-145); eGFR For Non-African Americans > 60 (> 60)
[2018-09-08] MEDS: Multivit/Ca/Min/Fe/FA 1 TAB TABLET PO SCH (08:55)
[2018-09-08] MEDS: Thiamine (B-1) 100 MG TABLET PO SCH (08:55)
[2018-09-08] MEDS: Aspirin Enteric Coated 81 MG Tablet PO SCH (08:55)
[2018-09-08] MEDS: Folic Acid 1 MG TABLET PO SCH (08:55)
[2018-09-08] MEDS: Levofloxacin 750 MG/150 ML 750 MG/150 ML BAG IVPB SCH (08:57)
--- NOTE | 2018-09-08 09:04 | Discharge Summary ---
<Sunitha Craig - Last Filed: 09/08/18 13:48> Orders not resulted at time of discharge: Pending orders 09/04/18 17:32 Culture,Blood [BC] Routine 09/05/18 14:00 Culture,Blood [BC] Routine Date of Encounter: 09/08/18 - Discharge Diagnosis (1) Acute exacerbation of chronic obstructive airways disease Status: Acute (2) Community acquired pneumonia Status: Acute Qualifiers: Laterality: unspecified laterality Qualified Code(s): J18.9 - Pneumonia, unspecified organism (3) Hyponatremia Status: Acute (4) COPD (chronic obstructive pulmonary disease) Status: Acute Qualifiers: COPD type: unspecified COPD Qualified Code(s): J44.9 - Chronic obstructive pulmonary disease, unspecified (5) Hypokalemia Status: Acute (6) Atrial fibrillation Status: Acute Qualifiers: Atrial fibrillation type: unspecified Qualified Code(s): I48.91 - Unspecified atrial fibrillation (7) Coronary artery disease Status: Acute Qualifiers: Coronary Disease-Associated Artery/Lesion type: [place] artery [place] vs. transplanted heart: [place] heart Associated angina: without angina Qualified Code(s): I25.10 - Atherosclerotic heart disease of [place] coronary artery without angina pectoris (8) Hypertension Status: Acute Qualifiers: Hypertension type: essential hypertension Qualified Code(s): I10 - Essential (primary) hypertension Hospital course: Mr. Gee is a 83 year old male - Time Spent with Patient Total time spent providing and/or coordinating discharge services: - Discharge Medications Prescriptions: Ipratropium/Albuterol Neb [Duoneb] 3 ml IH Q6HR 30 Days #30 vial.neb levoFLOXacin [Levaquin] 750 mg PO DAILY 1 Days #1 tablet metroNIDAZOLE [Flagyl] 500 mg PO TID 1 Days #3 tablet predniSONE [PredniSONE] See Taper PO DAILY 9 Days #18 tablet Salmeterol Xinafoate [Serevent Diskus] 50 mcg IH BID 30 Days #1 blst.w.dev Home Medications: Aspirin Enteric Coated [Aspirin EC] 81 mg PO DAILY 03/15/16 [History] Simvastatin [Zocor] 20 mg PO HS 03/15/16 [History] hydroCHLOROthiazide [Hydrochlorothiazide] 25 mg PO DAILY 03/15/16 [History] Carvedilol 3.125 mg PO BID 09/04/18 [History] Clopidogrel [Plavix] 75 mg PO DAILY 09/04/18 [History] Multivitamin [One Daily Multivitamin] 1 tab PO DAILY 09/04/18 [History] Tamsulosin [Flomax] 0.4 mg PO DAILY 09/04/18 [History] Ipratropium/Albuterol Neb [Duoneb] 3 ml IH Q6HR 30 Days #30 vial.neb 09/08/18 [Rx] Salmeterol Xinafoate [Serevent Diskus] 50 mcg IH BID 30 Days #1 blst.w.dev 09/08/18 [Rx] levoFLOXacin [Levaquin] 750 mg PO DAILY 1 Days #1 tablet 09/08/18 [Rx] metroNIDAZOLE [Flagyl] 500 mg PO TID 1 Days #3 tablet 09/08/18 [Rx] predniSONE [PredniSONE] See Taper PO DAILY 9 Days #18 tablet 09/08/18 [Rx] Allergies/Adverse Reactions: Allergy/AdvReac Type Severity Reaction Status Date / Time Penicillins Allergy Hives Verified 08/08/15 11:55 Date of admission: 09/04/18 16:00 Primary care physician: Vlad Pastrana MD Consults: 09/04/18 16:24 Consult to Nutrition [CONS] Routine Comment: Consulting Provider: NUTRITION Reason for Dietary Consult: MST Score 09/05/18 08:49 Consult to Nurse Navigator [CONS] Routine Comment: copd/pn - Constitutional Vitals: Temp Pulse Resp BP Pulse Ox 98.6 F 88 18 115/75 97 09/08/18 10:40 09/08/18 10:40 09/08/18 10:40 09/08/18 10:40 09/08/18 11:58 - Patient Status Disposition: Home, Self-Care Condition: Fair - Discharge Instructions Instructions: Prednisone (By mouth), Metronidazole (By mouth), Levofloxacin (By mouth), Pneumonia (DC) Follow Up With: Kay Boone MD [Partnered Physician] - (Web request 09/08/2018) Vlad Pastrana MD [Primary Care Provider] - 09/15/18 1:30 pm (Please follow up as schedule....) - Attending Attestation I examined this patient and my medical decision-making was reviewed with the Resident Physician. I agree with the documented findings, disposition and treatment plan as described except to the extent set forth below. <Jesus Cali - Last Filed: 09/08/18 17:12> - NOTES TO OUTPATIENT PROVIDER Notes to Outpatient Provider: Mr Gee was admitted on 09/04/18 for worsening SOB and dyspnea of 2 weeks duration. Stated he had not been eating or drinking much during this time. CXR from the ED showed new patchy opacities in the lung bases suspicious for pneumonia. Pt was started on Levaquin and Flagyl to cover for community acquired and possible aspiration pneumonia. He was also started on a course of steroids. At time of discharge pt was on day 4 of 5 for antibiotics and was given a 9 day steroid taper. A script was also sent for a LABA inhaler. If script is too expensive for please try another LABA! Orders not resulted at time of discharge: Pending orders 09/04/18 17:32 Culture,Blood [BC] Routine 09/05/18 14:00 Culture,Blood [BC] Routine Date of Encounter: 09/08/18 Time of Encounter: 09:01 - Discharge Diagnosis (1) Acute exacerbation of chronic obstructive airways disease Priority: Primary Status: Acute Assessment and Plan: Hx of COPD Presented with dyspnea and SOB for 2 weeks CXR from ED revealed bilateral lower lung opacities as compared to film from 08/25/18 Legionella and Strep urine antigens negative Sputum cultures - no pathologic grow, only normal respiratory beronica Blood cultures x2 from 09/04 - one culture grew Staph haemolyticus sensitive to levaquin Blood cultures x2 from 09/05 - pending Currently satting well on 2lpm O2 via NC Solumedrol taper Continue Levaquin and Flagyl (Day 4) - will discharge with script to complete 5 day course (2) Community acquired pneumonia Priority: Secondary Status: Acute Assessment and Plan: plan as above Qualifiers: Laterality: unspecified laterality Qualified Code(s): J18.9 - Pneumonia, unspecified organism (3) COPD (chronic obstructive pulmonary disease) Priority: Secondary Status: Acute Assessment and Plan: plan as above Qualifiers: COPD type: unspecified COPD Qualified Code(s): J44.9 - Chronic obstructive pulmonary disease, unspecified (4) Hypokalemia Priority: Secondary Status: Acute Assessment and Plan: Potassium 4.1 today Continue to monitor closely (5) Hyponatremia Priority: Secondary Status: Acute Assessment and Plan: Sodium today of 135 Remains asymptomatic Continue to monitor closely (6) Atrial fibrillation Priority: Secondary Status: Acute Assessment and Plan: Hx of afib, not on home anticoagulation CHADS2-VASC score of 4 EKG showed Afib with RVR at rate of 99 HR remains in 80s to 100s based on telemetry Continues to deny chest pain or palpitations. Continue home meds Recommend follow up with cardiology and re-evaluate for anticoagulation Qualifiers: Atrial fibrillation type: unspecified Qualified Code(s): I48.91 - Unspecified atrial fibrillation (7) Coronary artery disease Priority: Secondary Status: Acute Assessment and Plan: Hx of NSTEMI in 2005 and 2007. Has had LHC with no stents placed Continue ASA, Plavix, and statin Qualifiers: Coronary Disease-Associated Artery/Lesion type: [place] artery [place] vs. transplanted heart: [place] heart Associated angina: without angina Qualified Code(s): I25.10 - Atherosclerotic heart disease of [place] coronary artery without angina pectoris (8) Hypertension Priority: Secondary Status: Acute Assessment and Plan: Stable at 113/76 today Continue Coreg Ok to resume HCTZ on discharge Qualifiers: Hypertension type: essential hypertension Qualified Code(s): I10 - Essential (primary) hypertension Hospital course: Mr. Gee is a 83 year old male who was admitted on 09/04/18 for worsening SOB and dyspnea of 2 weeks duration. Stated he had not been eating or drinking much during this time. CXR from the ED showed new patchy opacities in the lung bases suspicious for pneumonia. Pt was started on Levaquin and Flagyl to cover for community acquired and possible aspiration pneumonia. Pt does have a hx of alcohol abuse, typically consuming 3-6 beers per day. However pt states he has not been drinking since he started feeling ill. He was started on a course of steroids, along with the antibiotics. He improved within the next couple of days. At time of discharge pt was on day 4 of 5 for antibiotics and was given a 9 day steroid taper. Pt did express concerns about need for home O2 particularly overnight while sleeping. Had previously discussed referring him to pulmonology/sleep medicine upon discharge. Discussed with p ozzy following up as outpatient for possible sleep apnea since he is stable for discharge and no longer requiring supplemental O2 despite vigorous ambulation in the hallways. Pt and his agreed with the plan. Discharge discussed with: patient, family, nurse - Time Spent with Patient Total time spent providing and/or coordinating discharge services: Date of admission: 09/04/18 16:00 Primary care physician: Vlad Pastrana MD Consults: 09/04/18 16:24 Consult to Nutrition [CONS] Routine Comment: Consulting Provider: NUTRITION Reason for Dietary Consult: MST Score 09/05/18 08:49 Consult to Nurse Navigator [CONS] Routine Comment: copd/pn Discharging clinician: Jesus Cali - Constitutional Vitals: Temp Pulse Resp BP Pulse Ox 97.6 F 91 18 109/70 95 09/08/18 06:58 09/08/18 06:58 09/08/18 06:58 09/08/18 06:58 09/08/18 06:58 General appearance: Present: cooperative, A&O X 3, pleasant, no acute distress, answers questions appropriately Exam: General: well nourished, well developed male in minimal respiratory disress Head: Atraumatic, normocephalic Eyes: PERRL, EOMI, no scleral icterus or conjunctival injection Neck: Supple, trachea midline Heart: Irregularly irregular rhythm, normal S1 and S2 heart sounds present, no gallops, rubs, or murmurs Resp: Grossly diminished breath sounds, but improved from yesterday. No wheezes, rales, or rhonchi. Minimally labored breathing on 2lpm O2. GI: Abdomen soft, non-tender, non-distended. no masses. normoactive bowel sounds Extremities: warm, peripheral pulses palpable and symmetrical. no edema or cyanosis Neuro: A&Ox3. no focal deficits. no speech difficulty or abnormality Skin: warm, dry, intact - Patient Status Functional capacity at discharge: independent ambulation Overall status at discharge: patient is progressing back to baseline - Diet and Activity Activity: increase activity as tolerated, resume usual activities as tolerated, wear oxygen at all times Diet: regular diet
[2018-09-08 10:43] VITALS: BP 115/75
[2018-09-08] MEDS ORDERED: metroNIDAZOLE 500 MG TABLET PO SCH (15:00)
--- NOTE | 2018-09-08 16:26 | Electrocardiograph Report ---
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
[2018-09-09] MEDS ORDERED: levoFLOXacin 750 MG TABLET PO SCH (09:00)
== END 2018-09-08 14:54 | disposition home or self-care (01) | DRG 871 ==
LOC: EMEROOARM 12:08 → 2ANU 12:08 → SUATTDRO 16:00
PROVIDERS: ADMIT Hospitalist; ATTEND Student in an Organized Health Care Education/Training Program

== ENCOUNTER 2022-02-03 04:32 | Inpatient (IN) ==
[2022-02-03] MEDS ORDERED: Ipratropium/Albuterol Neb 3 ML IH ONE (04:45)
[2022-02-03] MEDS ORDERED: Pantoprazole 40 MG VIAL IVP ONE (04:45)
[2022-02-03] MEDS ORDERED: Iopamidol - 370 500 ML MLS IVP ONE ×3 (04:54→07:02)
[2022-02-03] MEDS ORDERED: 0.9 % Sodium Chloride 1,000 ML ONE (05:14)
[2022-02-03] MEDS ORDERED: Amiodarone Premix 150 MG/100 ML BAG IVPB ONE (05:17)
[2022-02-03 05:29] LABS: Basophils % 0.3 %; Eosinophils # 0.1 K/mcL (0.0-0.6); Eosinophils % 0.3 %; Hematocrit 32.9 % (37.5-50.1); Immature Granulocytes % 1.2 % (0-4); Lymphocytes # 2.1 K/mcL (0.6-4.6); Lymphocytes % 14.1 %; Mean Corpuscular HGB Conc 33.4 g/dL (31.6-35.5); Mean Corpuscular Hemoglobin 34.6 pg (28.0-33.3); Mean Corpuscular Volume 103.5 fL (83.0-100.0); Mean Platelet Volume 9.9 fL (9.4-12.4); Neutrophils # 11.3 K/mcL (1.6-8.9); Platelet Count 482 K/mcL (140-400); Red Blood Count 3.18 M/mcL (4.19-5.50); Red Cell Distribution Width 12.9 % (11.5-14.5); Segmented Neutrophils % 77.1 %; White Blood Count 14.6 K/mcL (4.3-11.1)
[2022-02-03 05:37] LABS: INR 1.4; Prothrombin Time 15.6 Seconds (9.4-12.1)
[2022-02-03 05:40] LABS: Activated Partial Thrombo Time 29.1 Seconds (26.0-36.0)
[2022-02-03] MEDS ORDERED: 0.9 % Sodium Chloride 1,000 ML IV ONE (06:06)
[2022-02-03 06:07] LABS: Troponin I < 0.03 ng/mL (< 0.04)
[2022-02-03 06:08] LABS: Thyroid Stimulating Hormone 1.525 mcIU/mL (0.340-5.600)
[2022-02-03] MEDS ORDERED: Ondansetron ODT 4 MG TAB.RAPDIS SL ONE (06:32)
[2022-02-03] MEDS ORDERED: 0.9 % Sodium Chloride 500 ML IVC ONE ×2 (06:52→12:25)
[2022-02-03 06:53] LABS: Alanine Aminotransferase 27 Units/L (7-52); Albumin 2.9 g/dL (3.5-5.7); Albumin/Globulin Ratio 1.3 (1.1-2.2); Alkaline Phosphatase 62 Units/L (34-104); Aspartate Amino Transferase 21 Units/L (13-39); BUN/Creatinine Ratio 37 (6-26); Bilirubin,Direct 0.1 mg/dL (0.0-0.2); Bilirubin,Indirect 0.4 mg/dL (0.0-1.0); Bilirubin,Total 0.5 mg/dL (0.3-1.0); Blood Urea Nitrogen 49 mg/dL (8-23); Calcium 8.3 mg/dL (8.6-10.3); Carbon Dioxide 24 mEq/L (23-29); Chloride 100 mEq/L (98-107); Globulin 2.3 g/dL (2.4-3.5); Glucose 103 mg/dL (70-105); Magnesium 1.7 mg/dL (1.6-2.6); Osmolality,Calculated 285 (280-300); Potassium 4.9 mEq/L (3.5-5.1); Sodium 131 mEq/L (136-145); Total Protein 5.2 g/dL (6.4-8.9); eGFR For African Americans > 60 (> 60); eGFR For Non-African Americans 51 (> 60)
[2022-02-03] MEDS ORDERED: cefTRIAXone 1,000 MG in 0.9 % Sodium Chloride 10 ML IVP ONE (07:21)
[2022-02-03] MEDS ORDERED: Ondansetron 4 MG/2 ML VIAL IVP PRN (11:49)
[2022-02-03] MEDS ORDERED: *HR* Metoprolol 5 MG/5 ML VIAL IVP PRN (12:04)
[2022-02-03 12:43] LABS: Hemoglobin 9.6 g/dL (12.9-16.9)
[2022-02-03] MEDS ORDERED: rOPINIRole 0.25 MG TABLET PO ONE (13:44)
[2022-02-03] MEDS: Ipratropium/Albuterol Neb 3 ML IH SCH ×4 (15:49→23:37)
[2022-02-03] MEDS: Pantoprazole 40 MG VIAL IVP SCH (17:03)
[2022-02-03] MEDS: Budesonide/Formoterol 160/4.5 1 PUFF INH IH SCH (19:48)
[2022-02-03] MEDS ORDERED: rOPINIRole 1 MG TABLET PO SCH (21:00)
[2022-02-03] MEDS: rOPINIRole 1 MG TABLET PO PRN (22:13)
[2022-02-03] MEDS ORDERED: Melatonin 3 MG TABLET PO PRN (23:51)
[2022-02-04] MEDS: Ipratropium/Albuterol Neb 3 ML IH SCH ×6 (03:40→23:29)
[2022-02-04] MEDS: Pantoprazole 40 MG VIAL IVP SCH ×2 (06:18→17:49)
[2022-02-04] MEDS: Budesonide/Formoterol 160/4.5 1 PUFF INH IH SCH ×3 (07:37→19:27)
[2022-02-04 09:37] LABS: Basophils % 0.4 %; Eosinophils # 0.1 K/mcL (0.0-0.6); Eosinophils % 0.5 %; Hematocrit 25.5 % (37.5-50.1); Hemoglobin 8.5 g/dL (12.9-16.9); Immature Granulocytes % 0.8 % (0-4); Lymphocytes # 1.7 K/mcL (0.6-4.6); Lymphocytes % 16.5 %; Mean Corpuscular HGB Conc 33.3 g/dL (31.6-35.5); Mean Corpuscular Hemoglobin 35.4 pg (28.0-33.3); Mean Corpuscular Volume 106.3 fL (83.0-100.0); Mean Platelet Volume 9.8 fL (9.4-12.4); Monocytes # 0.8 K/mcL (0.0-1.3); Monocytes % 7.7 %; Neutrophils # 7.6 K/mcL (1.6-8.9); Platelet Count 365 K/mcL (140-400); Red Cell Distribution Width 13.6 % (11.5-14.5); Segmented Neutrophils % 74.1 %; White Blood Count 10.2 K/mcL (4.3-11.1)
[2022-02-04 09:58] LABS: BUN/Creatinine Ratio 25 (6-26); Blood Urea Nitrogen 31 mg/dL (8-23); Calcium 8.7 mg/dL (8.6-10.3); Carbon Dioxide 24 mEq/L (23-29); Chloride 102 mEq/L (98-107); Glucose 114 mg/dL (70-105); Osmolality,Calculated 281 (280-300); Potassium 4.3 mEq/L (3.5-5.1); Sodium 132 mEq/L (136-145); eGFR For African Americans > 60 (> 60); eGFR For Non-African Americans 56 (> 60)
[2022-02-04] MEDS: Thiamine (B-1) 100 MG in 0.9 % Sodium Chloride 50 ML IVPB SCH (10:04)
[2022-02-04] MEDS ORDERED: *HR* Propofol 200 MG/20 ML VIAL IVP ONE (11:55)
[2022-02-04] MEDS ORDERED: Lidocaine -MPF 2% 2 ML VIAL ONE (11:57)
[2022-02-04] MEDS ORDERED: Ondansetron 4 MG/2 ML VIAL IVP PRN (12:12)
[2022-02-04] MEDS ORDERED: *HR* Etomidate 40 MG/20 ML VIAL IVP ONE (12:38)
[2022-02-04] MEDS: Folic Acid 1 MG in 0.9 % Sodium Chloride 50 ML IVPB SCH (14:43)
[2022-02-04 14:58] LABS: Hematocrit 22.7 % (37.5-50.1); Hemoglobin 7.7 g/dL (12.9-16.9)
[2022-02-04] MEDS: rOPINIRole 1 MG TABLET PO PRN (21:29)
[2022-02-04] MEDS: Sucralfate 1 GM TABLET PO SCH (21:29)
[2022-02-05 03:28] LABS: Hematocrit 22.7 % (37.5-50.1); Hemoglobin 7.6 g/dL (12.9-16.9); Mean Corpuscular HGB Conc 33.5 g/dL (31.6-35.5); Mean Corpuscular Hemoglobin 35.3 pg (28.0-33.3); Mean Corpuscular Volume 105.6 fL (83.0-100.0); Mean Platelet Volume 9.9 fL (9.4-12.4); Platelet Count 298 K/mcL (140-400); Red Blood Count 2.15 M/mcL (4.19-5.50); Red Cell Distribution Width 13.3 % (11.5-14.5); White Blood Count 9.6 K/mcL (4.3-11.1)
[2022-02-05 03:48] LABS: BUN/Creatinine Ratio 19 (6-26); Blood Urea Nitrogen 19 mg/dL (8-23); Calcium 8.5 mg/dL (8.6-10.3); Carbon Dioxide 26 mEq/L (23-29); Chloride 98 mEq/L (98-107); Glucose 107 mg/dL (70-105); Magnesium 1.7 mg/dL (1.6-2.6); Osmolality,Calculated 269 (280-300); Sodium 128 mEq/L (136-145); eGFR For African Americans > 60 (> 60); eGFR For Non-African Americans > 60 (> 60)
[2022-02-05] MEDS: Ipratropium/Albuterol Neb 3 ML IH SCH ×6 (03:55→22:59)
[2022-02-05] MEDS ORDERED: 0.9 % Sodium Chloride 500 ML IVC ONE (04:46)
[2022-02-05] MEDS: Pantoprazole 40 MG VIAL IVP SCH ×2 (04:54→17:08)
[2022-02-05] MEDS ORDERED: 0.9 % Sodium Chloride 250 ML ONE (05:15)
[2022-02-05] MEDS: Budesonide/Formoterol 160/4.5 1 PUFF INH IH SCH ×2 (07:20→20:04)
[2022-02-05] MEDS: Folic Acid 1 MG in 0.9 % Sodium Chloride 50 ML IVPB SCH (08:29)
[2022-02-05] MEDS: Thiamine (B-1) 100 MG in 0.9 % Sodium Chloride 50 ML IVPB SCH (08:30)
[2022-02-05 13:33] LABS: Hemoglobin 8.8 g/dL (12.9-16.9)
[2022-02-05] MEDS: Sucralfate 1 GM TABLET PO SCH (19:53)
[2022-02-05 20:29] LABS: Hemoglobin 8.9 g/dL (12.9-16.9)
[2022-02-06] MEDS ORDERED: 0.9 % Sodium Chloride 500 ML IV ONE (04:01)
[2022-02-06] MEDS: Ipratropium/Albuterol Neb 3 ML IH SCH ×6 (04:28→22:55)
[2022-02-06] MEDS: Pantoprazole 40 MG VIAL IVP SCH (05:21)
[2022-02-06 06:21] LABS: Hemoglobin 8.3 g/dL (12.9-16.9); Mean Corpuscular HGB Conc 33.2 g/dL (31.6-35.5); Mean Corpuscular Hemoglobin 33.9 pg (28.0-33.3); Platelet Count 259 K/mcL (140-400); Red Blood Count 2.45 M/mcL (4.19-5.50); Red Cell Distribution Width 15.3 % (11.5-14.5); White Blood Count 6.9 K/mcL (4.3-11.1)
[2022-02-06 06:48] LABS: BUN/Creatinine Ratio 13 (6-26); Blood Urea Nitrogen 9 mg/dL (8-23); Calcium 8.2 mg/dL (8.6-10.3); Carbon Dioxide 24 mEq/L (23-29); Chloride 102 mEq/L (98-107); Glucose 104 mg/dL (70-105); Osmolality,Calculated 273 (280-300); Potassium 3.5 mEq/L (3.5-5.1); Sodium 132 mEq/L (136-145); eGFR For African Americans > 60 (> 60); eGFR For Non-African Americans > 60 (> 60)
[2022-02-06] MEDS: Budesonide/Formoterol 160/4.5 1 PUFF INH IH SCH ×2 (08:06→19:29)
[2022-02-06] MEDS: Thiamine (B-1) 100 MG TABLET PO SCH (09:12)
[2022-02-06] MEDS: Folic Acid 1 MG TABLET PO SCH (09:12)
[2022-02-06 12:30] LABS: Hematocrit 26.7 % (37.5-50.1); Hemoglobin 8.9 g/dL (12.9-16.9)
[2022-02-06 18:30] LABS: Hematocrit 25.7 % (37.5-50.1); Hemoglobin 8.6 g/dL (12.9-16.9)
[2022-02-06] MEDS: Sucralfate 1 GM TABLET PO SCH (20:20)
[2022-02-06] MEDS: rOPINIRole 1 MG TABLET PO PRN (23:45)
[2022-02-07] MEDS: Ipratropium/Albuterol Neb 3 ML IH SCH ×2 (03:36→08:03)
[2022-02-07 07:05] LABS: Hematocrit 24.8 % (37.5-50.1); Hemoglobin 8.3 g/dL (12.9-16.9); Mean Corpuscular HGB Conc 33.5 g/dL (31.6-35.5); Mean Corpuscular Hemoglobin 34.2 pg (28.0-33.3); Mean Corpuscular Volume 102.1 fL (83.0-100.0); Mean Platelet Volume 9.9 fL (9.4-12.4); Platelet Count 263 K/mcL (140-400); Red Blood Count 2.43 M/mcL (4.19-5.50); Red Cell Distribution Width 15.6 % (11.5-14.5); White Blood Count 6.7 K/mcL (4.3-11.1)
[2022-02-07 07:37] LABS: BUN/Creatinine Ratio 10 (6-26); Blood Urea Nitrogen 7 mg/dL (8-23); Calcium 8.5 mg/dL (8.6-10.3); Carbon Dioxide 24 mEq/L (23-29); Chloride 101 mEq/L (98-107); Glucose 112 mg/dL (70-105); Osmolality,Calculated 271 (280-300); Potassium 3.4 mEq/L (3.5-5.1); Sodium 131 mEq/L (136-145); eGFR For African Americans > 60 (> 60); eGFR For Non-African Americans > 60 (> 60)
[2022-02-07] MEDS: Budesonide/Formoterol 160/4.5 1 PUFF INH IH SCH ×2 (08:02→20:12)
[2022-02-07] MEDS ORDERED: Ipratropium Neb 0.5 MG NEBULIZER IH PRN (08:13)
[2022-02-07] MEDS: Metoprolol XL (24 HR) Succ 50 MG TAB.ER.24H PO SCH ×2 (08:47→08:55)
[2022-02-07] MEDS: Folic Acid 1 MG TABLET PO SCH (08:47)
[2022-02-07] MEDS: Thiamine (B-1) 100 MG TABLET PO SCH (08:47)
[2022-02-07 10:04] LABS: Bacteria,Urine Few per hpf (None-Few); Bilirubin,Urine Negative (Negative); Blood,Urine Negative (Negative); Clarity,Urine Clear (Clear); Color,Urine Light-Yellow (Yellow); Glucose,Urine (UA) Normal (Normal); Hyaline Casts,Urine Few per lpf (None Seen); Ketones,Urine Negative (Negative); Leukocyte Esterase,Urine Moderate (Negative); Mucus,Urine Few per lpf (None-Few); Nitrite,Urine Negative (Negative); Protein,Urine Trace mg/dL (Neg-Trace); RBC,Urine 0-3 per hpf (0-3); Specific Gravity,Urine 1.011 (1.010-1.025); Squamous Epithelial Cell,Urine Few per hpf (None-Few); Urobilinogen,Urine Normal (Normal)
[2022-02-07 10:37] LABS: Folate 21.7 ng/mL (3.0-16.0)
[2022-02-07] MEDS ORDERED: *HR* Digoxin 0.5 MG/2 ML AMPUL IVP ONE (12:50)
[2022-02-07] MEDS ORDERED: cefTRIAXone 1,000 MG in 0.9 % Sodium Chloride 10 ML IVP SCH (13:00)
[2022-02-07] MEDS: Sucralfate 1 GM TABLET PO SCH (21:04)
[2022-02-07] MEDS: *HR* Digoxin 0.5 MG/2 ML AMPUL IVP SCH (21:06)
[2022-02-07] MEDS: rOPINIRole 1 MG TABLET PO PRN (21:06)
[2022-02-08] MEDS: *HR* Digoxin 0.5 MG/2 ML AMPUL IVP SCH (01:15)
[2022-02-08 02:10] LABS: Hematocrit 24.6 % (37.5-50.1); Hemoglobin 8.2 g/dL (12.9-16.9); Mean Corpuscular HGB Conc 33.3 g/dL (31.6-35.5); Mean Corpuscular Hemoglobin 34.3 pg (28.0-33.3); Mean Corpuscular Volume 102.9 fL (83.0-100.0); Mean Platelet Volume 10.1 fL (9.4-12.4); Platelet Count 273 K/mcL (140-400); Red Blood Count 2.39 M/mcL (4.19-5.50); Red Cell Distribution Width 15.3 % (11.5-14.5)
[2022-02-08 02:24] LABS: BUN/Creatinine Ratio 9 (6-26); Blood Urea Nitrogen 6 mg/dL (8-23); Calcium 8.4 mg/dL (8.6-10.3); Carbon Dioxide 24 mEq/L (23-29); Chloride 101 mEq/L (98-107); Glucose 105 mg/dL (70-105); Osmolality,Calculated 270 (280-300); Sodium 131 mEq/L (136-145); eGFR For African Americans > 60 (> 60); eGFR For Non-African Americans > 60 (> 60)
[2022-02-08] MEDS: Budesonide/Formoterol 160/4.5 1 PUFF INH IH SCH (07:54)
[2022-02-08 07:58] VITALS: BP 121/69; PULSE 94; TEMP 98.3; O2SAT 97
[2022-02-08] MEDS ORDERED: Apixaban 5 MG TABLET PO SCH (09:00)
[2022-02-08] MEDS ORDERED: Furosemide 20 MG TABLET PO SCH (09:00)
[2022-02-08] MEDS ORDERED: Finasteride 5 MG TABLET PO SCH (09:00)
[2022-02-08] MEDS ORDERED: Metoprolol XL (24 HR) Succ 25 MG TAB.ER.24H PO SCH (09:00)
[2022-02-08] MEDS: Thiamine (B-1) 100 MG TABLET PO SCH (09:09)
[2022-02-08] MEDS: Folic Acid 1 MG TABLET PO SCH (09:09)
== END 2022-02-08 12:21 | disposition home or self-care (01) | DRG 378 ==
LOC: EMEROOARM 04:32 → 2NENU 04:32 → SUATTDRO 12:03
PROVIDERS: ADMIT Student in an Organized Health Care Education/Training Program; ATTEND Internal Medicine
PROC: ENDOEBX (2022-02-04 11:45)